=== PATIENT | male | born 1950 | race Caucasian/White ===

== ENCOUNTER → 2019-01-05 07:03 | Outpatient (CLI) | payer MEDICARE, SELFPAY ==
[2019-01-05 08:14] LABS: Add Manual Diff / Slide Review NO; Basophils Absolute Auto 0 /uL (0-100); Basophils Percent Auto 0.7 % (0-2); Eosinophils Absolute Auto 300 /uL (0-450); Eosinophils Percent Auto 5.5 % (2-4); Hematocrit 50.3 % (41-53); Hemoglobin 16.7 g/dL (13.5-17.5); Lymphocytes Absolute Auto 1900 /uL (1100-4500); Lymphocytes Percent Auto 32.5 % (25-40); Mean Corpuscular HGB Conc 33.3 % (30-36); Mean Corpuscular Volume 99.2 fL (80-100); Monocytes Absolute Auto 600 /uL (0-900); Monocytes Percent Auto 10.8 % (3-14); Neutrophils Absolute Auto 3000 /uL (1500-7000); Neutrophils Percent Auto 50.5 % (50-75); Platelet Count 125 X10^3/uL (150-400); Red Blood Cell Count 5.07 X10^6/uL (4.5-5.9); Red Cell Distribution Width 13.7 % (11.6-14.8); White Blood Cell Count 5.9 X10^3/uL (4.5-11.0)
[2019-01-05 08:38] LABS: Alanine Aminotransferase 43 IU/L (21-72); Albumin 4.2 g/dL (3.5-5.0); Albumin Globulin Ratio 1.2 (1.0-2.8); Alkaline Phosphatase 42 U/L (38-126); Aspartate Aminotransferase 36 IU/L (17-59); Bilirubin Total 0.7 mg/dL (0.2-1.3); Blood Urea Nitrogen 39 mg/dL (9-20); Calcium 9.2 mg/dL (8.4-10.2); Carbon Dioxide 29 mmol/L (22-32); Chloride 104 mmol/L (98-107); Cholesterol 156 mg/dL (140-199); Estimated Glomerular Filt Rate 46.3 mL/min (>60); Globulin 3.5 g/dL (1.7-4.1); Glucose 101 mg/dL (80-110); HDL Cholesterol 62 mg/dL (40-60); HEMOLYSIS 25 (0-50); LDL Cholesterol Calculated 77 mg/dL (<100); Sodium 142 mmol/L (137-145); Total Protein 7.7 g/dL (6.3-8.2); Triglycerides 83 mg/dL (35-150); Uric Acid 3.8 mg/dL (3.5-8.5)
[2019-01-05 08:39] LABS: Potassium 4.5 mmol/L (3.4-5.1)
[2019-01-05 11:19] LABS: Creatinine Urine Random 93.1 mg/dL
[2019-01-05 11:20] LABS: Microalbumi Creatinin Ratio Ur 99.8 ug/mg CR (<30); Microalbumin Urine Random 9.3 mg/dL (0-1.6)
== END ==
PROVIDERS: Visit Provider Internal Medicine
DX: M10.00 Idiopathic gout, unspecified site (principal); I10 Essential (primary) hypertension; E78.00 Pure hypercholesterolemia, unspecified
CPT/HCPCS: 36415; 80053; 80061; 82043; 82570; 84153; 84550; 85025

== ENCOUNTER 2019-04-10 06:40 | Day surgery (SDC) | payer MEDICARE, SELFPAY ==
[2019-04-10] VITALS (10 sets, daily range): BP systolic 106–154; BP diastolic 66–94; PULSE 52–57; RESP 11–20; TEMP 36.1–37; O2SAT 89–97; BMI 31.3
--- NOTE | 2019-04-10 | PATH_ITS ---
[facility] Accession Number: [id number] . 01 Material submitted: . PART A: stomach - GREATER CURVE PART B: stomach - BODY OF STOMACH PART C: esophagus, E-G Junction - GE JUNCTION . 02 Diagnosis: A. Stomach, Greater Curve, Biopsy: Features of fundic gland polyp. No evidence of Helicobacter organisms on H/E stain. Negative for intestinal metaplasia. Negative for dysplasia and malignancy. . B. Stomach, Body, Biopsies: Features of fundic gland polyp. No evidence of Helicobacter organisms on H/E stain. Negative for intestinal metaplasia. Negative for dysplasia and malignancy. . C. Gastroesophageal Junction, Biopsy: Squamocolumnar junctional mucosa with focal specialized intestinal metaplasia; please see comment. Negative for dysplasia or malignancy. BFI/04/11/2019 . 02 Comment: C. 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 . 02 Electronically signed: . Winston Zavala MD, PhD, Pathologist NPI- [id number] . 01 Gross description: . Part A: GREATER CURVE: Received in formalin are 2 fragment(s) of laguerre, soft tissue measuring 0.1 x 0.1 x 0.1 cm to 0.2 x 0.2 x 0.1 cm which is entirely submitted and submitted entirely in 1 cassette(s) Part B: BODY OF STOMACH: Received in formalin are 2 fragment(s) of laguerre, soft tissue measuring 0.1 x 0.1 x 0.1 cm to 0.2 x 0.1 x 0.1 cm which is entirely submitted and submitted entirely in 1 cassette(s) Part C: GE JUNCTION: Received in formalin are multiple fragment(s) of laguerre, soft tissue measuring 0.1 x 0.1 x 0.1 cm to 0.3 x 0.2 x 0.2 cm which is entirely submitted and submitted entirely in 1 cassette(s) /DMC /DMC . 02 Pathologist provided ICD-10: K31.7, K22.70 . 02 CPT . 178242, 672056, 450552 Performed at: 01 [facility] [address] [address], [place], [place] [id number] MD Del Rosales MD Phone: [phone] Performed at: [address] [facility] [id number] [place], [place] [id number] MD Earline Velasquez MD Phone: [phone]
[2019-04-10] MEDS: SODIUM CHLORIDE 0.9% 1,000 ML 200 ML IV (07:26)
--- NOTE | 2019-04-10 07:26 | PM.PREOP ---
Pre-operative Note Interval Note History & Physical reviewed/Exam performed by Physician: Yes Changes to H&P: No ASA Class (for procedural sedation): II
[2019-04-10] MEDS: LIDOCAINE 4% SOLN 50 ML 20 ML TOP (07:48)
[2019-04-10] MEDS: TETRACAINE/BENZOCAINE/BUTAMBEN (CETACAINE) BOTTLE 1 SPRAY TOP (07:49)
[2019-04-10] MEDS: fentaNYL 250 MCG/5 ML INJ IV (07:50)
[2019-04-10] MEDS: MIDAZOLAM 5 MG/5 ML VIAL IV (07:51)
--- NOTE | 2019-04-10 08:46 | SUR.PHASEI ---
Addendum entered by Addie Gomez R.N. 04/10/19 08:53: 0833 Color pale on arrival; Responded to repetitive, loud voice. Unable to stay awake, has difficulty following command to deep breath. Original Note: 0840 Sleeping, aroused to voice, turned to back/snoring Bilateral hearing aids in place. 0846 Trial of O2 at 2LNP ineffective, returned to 4LNP. Denies pain, very drowsy.
--- NOTE | 2019-04-10 08:52 | SUR.PHASEI ---
Denies light-headedness; HOB elevated, ice chiips given; swallowed without difficulty.
--- NOTE | 2019-04-10 09:05 | SUR.PHASEI ---
HOB up, tolerating ice chips well, no difficulty swallowing. Color pink/improved. Responsive to voice/appropriate/drowsy.
--- NOTE | 2019-04-10 14:45 | P.OP.ENDO_ITS ---
Operative Date/Time/Diagnoses Date of procedure: 04/10/19 Time of procedure: 08:30 Pre-op diagnosis: 1. History of Vladimir's Esophagus 2. Need for screening colonoscopy Post-op diagnosis: same Procedure & Clinicians Study performed: 1. EGD with biopsies 2. Flexible Sigmoidoscopy Same procedure as scheduled: No (aborted screening colonscopy due to patient intolerance) Indications: Patient with history of Staton'e esophagus and need for screening colonoscopy; he is in a high risk category due to family history. Surgeon: Cammy Perez Procedure Notes SCOAP/Timeout: 0746 Procedure in detail: After obtaining informed consent, the patient was brought to the GI suite and placed in the right lateral decubitus position on the examination table. After placement of appropriate monitors, the patient was given incremental doses of Versed and Fentanyl until an appropriate level of sedation was achieved. A time out was held per SCOAP protocol. A bite block was gently placed between the patient's teeth. The endoscope was lubricated and then passed into the patient's posterior oropharynx. The esophagus was cannulated under direct vision and the scope was passed to the second portion of the duodenum without difficulty. Pt was periodically apneic and required stimulation. The scope was then withdrawn with careful examination of all areas of the upper GI tract and mucosa. In the stomach, the instrument was retroflexed and the GE junction examined. Mild gastritis was noted around the pylorus and body. Several small polyps were noted along the body and greater curve- two of these were removed with cold forceps and sent for pathology. The scope was straightened and the procedure continued with examination of the remainder of the upper GI tract. Staton's changes and a small hiatal hernia were noted. A single tongue of salmon colored tissue extended about 2 cm; multiple biopsies from this and all four quadrants were obtained. Air was aspirated from the stomach and the endoscope gently removed f rom the esophagus. The patient was turned and bite block removed. A digital rectal examination was performed and did not reveal any masses or obstructing lesions but an enlarged prostate was noted. The colonoscope was gently passed into the patient's anus and the entire colon navigated to the level splenic flexure. Patient was quite intolerant despite incremental sedation increases; caution was applied given his apneic issues. He was yelling and writing despite numerous attempts, sedation changes, and checks to ensure no loops or scope issues were present. Given his pain and concern for perforation in this bad scenario, the scope was aborted. Prep was adequate. Diverticulosis was not throughout the sigmoid. The scope was straightened and air aspirated from the colon. The instrument was removed from the patient's body and the procedure was concluded. The patient was allowed to awaken from sedation without difficulty and taken to the post-anesthesia care unit in good condition. Scope withdrawal time: n/a Sedation minutes: 43 Findings: Staton's esophagus (single column tongue to 2cm), diverticulosis (severe, in sigmoid), gastritis and polyp (gastric polyps, numerous small noted (at least 4), biopsied from greater curve and body) Specimen(s): other (gastric polyp biopsies x2 (body & greater curve) as well as GEJ four quadrant biopsies for Staton's) Complications: other (patient with episodes of apnea during EGD, intolerant of colonoscopy and incremental sedation inadequate especially with caution given apnea) Impression: 1. Staton's changes 2. Gastritis 3. Gastric polyps- numerous 4. Hiatal hernia 5. Diverticulosis- severe Recommendations: Colonscopy in 1 year (will reschedule in office- patient noted after procedure that he thinks he has never had a completed colonoscopy with same issues as today), High fiber diet and EGD in 3 years Follow up: weeks Disposition: PACU
== END 2019-04-10 09:35 | disposition home or self-care (01) ==
PROVIDERS: PCP Internal Medicine; Visit Provider Surgery
PROC: 0DJ08ZZ Inspection of Upper Intestinal Tract, Via Natural or Artificial Opening Endoscopic (ICD-10-PCS; CPT 43235; 2019-04-10 07:45)
PROC: 0DJD8ZZ Inspection of Lower Intestinal Tract, Via Natural or Artificial Opening Endoscopic (ICD-10-PCS; CPT 45378; 2019-04-10 07:45)
DX: Z12.11 Encounter for screening for malignant neoplasm of colon (principal); K22.70 Barrett's esophagus without dysplasia; I10 Essential (primary) hypertension; E78.5 Hyperlipidemia, unspecified; K44.1 Diaphragmatic hernia with gangrene; K29.70 Gastritis, unspecified, without bleeding; K57.30 Diverticulosis of large intestine without perforation or abscess without bleeding; K31.7 Polyp of stomach and duodenum; N40.0 Benign prostatic hyperplasia without lower urinary tract symptoms
CPT/HCPCS: 43239; G0121; 88305; 99152; 99153; J2250; J3010

== ENCOUNTER → 2019-07-03 07:01 | Outpatient (CLI) | payer MEDICARE, SELFPAY ==
[2019-07-03 08:43] LABS: Add Manual Diff / Slide Review NO; Basophils Absolute Auto 0 /uL (0-100); Basophils Percent Auto 0.6 % (0-2); Eosinophils Absolute Auto 400 /uL (0-450); Eosinophils Percent Auto 6.1 % (2-4); Hemoglobin 16.1 g/dL (13.5-17.5); Lymphocytes Absolute Auto 2400 /uL (1100-4500); Lymphocytes Percent Auto 35.4 % (25-40); Mean Corpuscular HGB Conc 33.6 % (30-36); Mean Corpuscular Hemoglobin 33.2 PG (26-34); Mean Corpuscular Volume 98.8 fL (80-100); Monocytes Absolute Auto 700 /uL (0-900); Monocytes Percent Auto 10.4 % (3-14); Neutrophils Absolute Auto 3200 /uL (1500-7000); Neutrophils Percent Auto 47.5 % (50-75); Platelet Count 129 X10^3/uL (150-400); Red Blood Cell Count 4.86 X10^6/uL (4.5-5.9); Red Cell Distribution Width 14.4 % (11.6-14.8); White Blood Cell Count 6.8 X10^3/uL (4.5-11.0)
[2019-07-03 08:57] LABS: BUN Creatinine Ratio 23.8 (6-22); Blood Urea Nitrogen 38 mg/dL (9-20); Calcium 9.1 mg/dL (8.4-10.2); Carbon Dioxide 29 mmol/L (22-32); Chloride 106 mmol/L (98-107); Estimated Glomerular Filt Rate 42.9 mL/min (>60); Glucose 104 mg/dL (80-110); HEMOLYSIS < 15 (0-50); Sodium 141 mmol/L (137-145)
== END ==
PROVIDERS: PCP Internal Medicine; Visit Provider Internal Medicine
DX: K22.719 Barrett's esophagus with dysplasia, unspecified (principal); N18.3 Chronic kidney disease, stage 3 (moderate); D69.6 Thrombocytopenia, unspecified
CPT/HCPCS: 36415; 80048; 85025

== ENCOUNTER → 2019-09-28 10:03 | Outpatient (CLI) | payer MEDICARE, SELFPAY ==
--- NOTE | 2019-09-28 | DI.RAD.S_ITS ---
PROCEDURE: XR TOE LT MIN 2V INDICATIONS: left toe pain TECHNIQUE: 2 views of the great toe acquired. COMPARISON: None. FINDINGS: Bones: Severe degenerative changes of the 1st metatarsophalangeal joint are identified without associated hallux valgus. Additional areas of mild to moderate degenerative changes involving the foot are present. No suspicious osseous lesions are evident. No displaced fractures or dislocations. Soft tissues: No suspicious soft tissue densities. IMPRESSION: Severe degenerative changes of the 1st metatarsophalangeal joint. No fractures. Dictated by: Shay Chicas M.D. on 09/28/2019 at 9:25 Approved by: Shay Chicas M.D. on 09/28/2019 at 9:33
== END ==
PROVIDERS: PCP Internal Medicine; Visit Provider Physician Assistant
DX: M79.675 Pain in left toe(s) (principal)
CPT/HCPCS: 73660

== ENCOUNTER → 2020-01-01 16:17 | Outpatient (CLI) | payer MEDICARE, SELFPAY ==
[2020-01-01 17:14] LABS: Add Manual Diff / Slide Review NO; Basophils Absolute Auto 100 /uL (0-100); Basophils Percent Auto 0.7 % (0-2); Eosinophils Absolute Auto 400 /uL (0-450); Eosinophils Percent Auto 4.5 % (2-4); Hematocrit 48.3 % (41-53); Hemoglobin 16.4 g/dL (13.5-17.5); Lymphocytes Absolute Auto 2300 /uL (1100-4500); Lymphocytes Percent Auto 28.8 % (25-40); Mean Corpuscular Hemoglobin 33.6 PG (26-34); Mean Corpuscular Volume 98.8 fL (80-100); Monocytes Absolute Auto 900 /uL (0-900); Monocytes Percent Auto 11.3 % (3-14); Neutrophils Absolute Auto 4400 /uL (1500-7000); Neutrophils Percent Auto 54.7 % (50-75); Platelet Count 152 X10^3/uL (150-400); Red Blood Cell Count 4.89 X10^6/uL (4.5-5.9); Red Cell Distribution Width 13.4 % (11.6-14.8)
[2020-01-01 17:28] LABS: BUN Creatinine Ratio 22.7 (6-22); Blood Urea Nitrogen 34 mg/dL (9-20); Calcium 9.9 mg/dL (8.4-10.2); Carbon Dioxide 29 mmol/L (22-32); Chloride 103 mmol/L (98-107); Estimated Glomerular Filt Rate 46.1 mL/min (>60); Glucose 74 mg/dL (80-110); HEMOLYSIS < 15 (0-50); Sodium 140 mmol/L (137-145)
[2020-01-01 17:41] LABS: Potassium 5.6 mmol/L (3.4-5.1)
== END ==
PROVIDERS: PCP Internal Medicine; Referring Provider Internal Medicine; Visit Provider Internal Medicine
DX: I10 Essential (primary) hypertension (principal); N18.3 Chronic kidney disease, stage 3 (moderate); D69.6 Thrombocytopenia, unspecified
CPT/HCPCS: 36415; 80048; 85025

== ENCOUNTER → 2020-01-30 14:10 | Outpatient (CLI) | payer MEDICARE, SELFPAY ==
[2020-01-30 15:39] LABS: BUN Creatinine Ratio 22.4 (6-22); Blood Urea Nitrogen 38 mg/dL (9-20); Calcium 9.4 mg/dL (8.4-10.2); Carbon Dioxide 29 mmol/L (22-32); Chloride 107 mmol/L (98-107); Estimated Glomerular Filt Rate 39.9 mL/min (>60); Glucose 72 mg/dL (80-110); HEMOLYSIS < 15 (0-50); Potassium 4.9 mmol/L (3.4-5.1); Sodium 144 mmol/L (137-145)
== END ==
PROVIDERS: PCP Internal Medicine; Referring Provider Internal Medicine; Visit Provider Internal Medicine
DX: I10 Essential (primary) hypertension (principal)
CPT/HCPCS: 36415; 80048

== ENCOUNTER → 2020-06-14 11:16 | Outpatient (CLI) | payer MEDICARE, SELFPAY ==
[2020-06-15 21:00] LABS: COVID19 Sendout Not Detected (Not Detect)
== END ==
PROVIDERS: PCP Internal Medicine; Visit Provider Nurse Practitioner
DX: Z01.812 Encounter for preprocedural laboratory examination (principal)
CPT/HCPCS: 87635

== ENCOUNTER → 2020-08-01 13:08 | Outpatient (CLI) | payer MEDICARE, SELFPAY ==
[2020-08-01 14:12] LABS: Add Manual Diff / Slide Review NO; Basophils Absolute Auto 0 /uL (0-100); Basophils Percent Auto 0.7 % (0-2); Eosinophils Absolute Auto 300 /uL (0-450); Eosinophils Percent Auto 5.5 % (2-4); Hematocrit 53.2 % (41-53); Hemoglobin 17.7 g/dL (13.5-17.5); Lymphocytes Absolute Auto 1900 /uL (1100-4500); Lymphocytes Percent Auto 31.1 % (25-40); Mean Corpuscular HGB Conc 33.3 % (30-36); Mean Corpuscular Hemoglobin 33.2 PG (26-34); Mean Corpuscular Volume 99.9 fL (80-100); Monocytes Absolute Auto 500 /uL (0-900); Monocytes Percent Auto 8.6 % (3-14); Neutrophils Absolute Auto 3300 /uL (1500-7000); Neutrophils Percent Auto 54.1 % (50-75); Platelet Count 134 X10^3/uL (150-400); Red Blood Cell Count 5.33 X10^6/uL (4.5-5.9); Red Cell Distribution Width 14.6 % (11.6-14.8); White Blood Cell Count 6.2 X10^3/uL (4.5-11.0)
[2020-08-01 14:29] LABS: Alanine Aminotransferase 33 IU/L (<50); Albumin 4.2 g/dL (3.5-5.0); Albumin Globulin Ratio 1.3 (1.0-2.8); Alkaline Phosphatase 60 U/L (38-126); Aspartate Aminotransferase 31 IU/L (17-59); BUN Creatinine Ratio 23.7 (6-22); Bilirubin Total 0.9 mg/dL (0.2-1.3); Blood Urea Nitrogen 40 mg/dL (9-20); Calcium 9.7 mg/dL (8.4-10.2); Carbon Dioxide 30 mmol/L (22-32); Chloride 105 mmol/L (98-107); Cholesterol 182 mg/dL (140-199); Estimated Glomerular Filt Rate 40.2 mL/min (>60); Globulin 3.2 g/dL (1.7-4.1); Glucose 114 mg/dL (80-110); HDL Cholesterol 74 mg/dL (40-60); HEMOLYSIS < 15 (0-50); LDL Cholesterol Calculated 76 mg/dL (<100); Sodium 141 mmol/L (137-145); Total Protein 7.4 g/dL (6.3-8.2); Triglycerides 162 mg/dL (35-150)
[2020-08-01 14:30] LABS: Potassium 5.6 mmol/L (3.4-5.1)
== END ==
PROVIDERS: PCP Internal Medicine; Referring Provider Internal Medicine; Visit Provider Internal Medicine
DX: E78.00 Pure hypercholesterolemia, unspecified (principal); D69.6 Thrombocytopenia, unspecified
CPT/HCPCS: 36415; 80053; 80061; 85025

== ENCOUNTER → 2020-08-15 10:23 | Outpatient (CLI) | payer MEDICARE, SELFPAY ==
[2020-08-15 11:56] LABS: BUN Creatinine Ratio 19.8 (6-22); Blood Urea Nitrogen 35 mg/dL (9-20); Calcium 9.1 mg/dL (8.4-10.2); Carbon Dioxide 29 mmol/L (22-32); Chloride 105 mmol/L (98-107); Estimated Glomerular Filt Rate 38.1 mL/min (>60); Glucose 99 mg/dL (80-110); HEMOLYSIS < 15 (0-50); Potassium 4.2 mmol/L (3.4-5.1); Sodium 142 mmol/L (137-145)
[2020-08-15 12:44] LABS: TSH w/ Reflex to FT4 1.75 uIU/mL (0.47-4.68)
== END ==
PROVIDERS: PCP Internal Medicine; Referring Provider Internal Medicine; Visit Provider Internal Medicine
DX: I48.91 Unspecified atrial fibrillation (principal)
CPT/HCPCS: 36415; 80048; 83735; 84443

== ENCOUNTER → 2020-08-28 07:53 | Outpatient (CLI) | payer MEDICARE, SELFPAY ==
--- NOTE | 2020-08-28 | DI.ECHO.S_ITS ---
[facility] +---------+ : : [address] : : : : [id number] : : : : Phone: [phone]---------+ Echocardiogram Report + + :Name: SAMANTA MENDEZ Study Date: 08/28/2020 Height: 67 in : :[facility] Weight: 206 lb : : Gender: Male BSA: 2.0 m2 : :: 1950 Age: 69 yrs BP: 151/110 mmHg: :Reason For Study: ATRIAL FIBRILLATION : :Ordering Physician: ROBERTO, : :ROEL Performed By: Charmaine Clancy : :Referring: ROEL MEJIA : + + Interpretation Summary The ejection fraction is estimated to be 40-45%. There is mild global hypokinesis of the left ventricle. Inferolateral hypokinesis There is mild to moderate mitral regurgitation. There is mild aortic regurgitation. Procedure: A two-dimensional transthoracic echocardiogram with color flow and Doppler was performed. The study quality was technically adequate. There is no prior echocardiogram noted for this patient. The patient was in atrial fibrillation with heart rates between 95-114 bpm during the exam. Left Ventricle: The left ventricle is normal in size and wall thickness. The ejection fraction is estimated to be 40-45%. There is mild global hypokinesis of the left ventricle. Inferolateral hypokinesis. Diastolic function could not be accurately assessed due to atrial fibrillation. Right Ventricle: The right ventricle is normal in size and function. Atria: Both atria are normal in size. There is no Doppler evidence for an interatrial shunt. Mitral Valve: The mitral valve leaflets appear mildly thickened, but open well. There is mild to moderate mitral regurgitation. Aortic Valve: The aortic valve is trileaflet. The aortic valve opens well. There is no aortic valve stenosis. There is mild aortic regurgitation. Tricuspid Valve: The tricuspid valve is not well visualized, but is grossly normal. Pulmonary artery pressures cannot be estimated because of the lack of a measurable TR jet velocity but the IVC suggests a CVP of around 3 mmHg. There is trace tricuspid regurgitation. Pulmonic Valve: The pulmonic valve is not well visualized. There is no pulmonic valvular regurgitation. Great Vessels: The aortic root is normal size. The ascending aorta could not be visualized. The IVC is of normal diameter and collapses greater than 50% with a sniff. This suggests a low right atrial pressure of 3 mm Hg. Pericardium/ Pleura There is no pericardial effusion. There is an anterior echo-free space consistent with a fat pad. There is no pleural effusion. MMode/2D Measurements & Calculations LVIDd: 4.4 cm LVOT diam: 2.0 cm LVIDs: 2.9 cm Ao root diam: 3.0 cm FS: 34.6 % Ao Arch Diam (Prox Trans): 3.7 cm EPSS: 0.94 cm IVSd: 0.87 cm LVPWd: 1.1 cm LV johnson. diameter/BSA (cm/m^2): 2.1 LV sys. diameter/BSA (cm/m^2): 1.4 LA A2 area: 19.6 cm2 RA long axis: 5.3 cm LA A4 area: 19.5 cm2 RA area: 16.8 cm2 LA length (vol): 5.7 cm RA vol: 45.4 ml LA vol: 57.5 ml RA : 22.2 ml/m2 LA vol index: 28.1 ml/m2 IVC diam: 1.7 cm RVD1 (basal): 3.5 cm TAPSE: 1.7 cm Doppler Measurements & Calculations Ao V2 max: 106.4 cm/sec LVOT Max Néstor: 70.8 cm/sec Ao V2 mean: 71.6 cm/sec LV V1 max P.0 mmHg Ao max P.5 mmHg LV V1 VTI: 12.9 cm Ao mean P.4 mmHg ALEJANDRO(I,D): 2.2 cm2 Ao V2 VTI: 19.0 cm ALEJANDRO(V,D): 2.2 cm2 sev ratio: 0.68 ALEJANDRO indexed to BSA (cm^2/m^2): 1.1 MV E max néstor: 110.0 cm/sec PA V2 max: 47.5 cm/sec MV A max néstor: 1.4 cm/sec PA V2 mean: 31.9 cm/sec MV E/A: 80.8 PA mean P.46 mmHg Med Peak E' Néstor: 9.0 cm/sec PA pr(Accel): 44.3 mmHg E/E' med: 12.3 Lat Peak E' Néstor: 8.5 cm/sec E/E' lat: 13.0 E/e' average: 12.6 MV dec time: 0.16 sec SV(LVOT): 42.3 ml Reading Physician:01:30 PM
== END ==
PROVIDERS: PCP Internal Medicine; Referring Provider Internal Medicine; Visit Provider Internal Medicine
DX: I08.0 Rheumatic disorders of both mitral and aortic valves (principal); I48.91 Unspecified atrial fibrillation
CPT/HCPCS: 93306

== ENCOUNTER → 2020-10-16 09:04 | Outpatient (CLI) | payer MEDICARE, SELFPAY ==
--- NOTE | 2020-10-16 | DI.US.S_ITS ---
PROCEDURE: US CAROTID DOPPLER BI INDICATIONS: Unspecified Afib; Hypertension TECHNIQUE: Color and pulse Doppler interrogation was performed of both carotid systems, with image documentation and velocity measurements. COMPARISON: [facility], US, US ABD AORTA ANEURYSM SCREEN, 10/16/2020, 9:17. FINDINGS: Stenosis calculations are based on SRU (Society of Radiologists in Ultrasound) criteria. The flow velocities and the arterial waveforms are normal within both carotid arterial systems. Atherosclerotic plaque is seen on both sides. The estimated degree of internal carotid artery stenosis is less than 50%. Antegrade flow is confirmed within both vertebral arteries. IMPRESSION: No hemodynamically significant stenosis is seen. Atherosclerotic plaque is noted bilaterally. Dictated by: Jarett Sagastume M.D. on 10/16/2020 at 10:44 Approved by: Jarett Sagastume M.D. on 10/16/2020 at 10:46
--- NOTE | 2020-10-16 | DI.US.S_ITS ---
PROCEDURE: US ABD AORTA ANEURYSM SCREEN INDICATIONS: Unspecified Afib; Hypertension TECHNIQUE: Real time scanning was performed of the aorta and iliac arteries, with image documentation. COMPARISON: [facility], US, US CAROTID DOPPLER , 10/16/2020, 9:32. FINDINGS: Aorta: Proximal aorta is not well seen. There is a mid abdominal aortic aneurysm seen that measures up to 4.2 cm AP. This fusiform aneurysm gradually tapers distally and measures approximately 11 cm craniocaudal. Distal aortic diameter is 3.1 cm. Iliac arteries: Not well seen. Incidental note is made of multiple right kidney cysts, with the largest seen inferiorly measuring up to 7 mm. Minimal dependent debris can be seen within the cysts. The study is limited by bowel gas. IMPRESSION: Mid abdominal aortic aneurysm measuring up to 4.2 cm AP. Multiple right kidney cysts are seen, including a 7 cm cyst with layering debris. Dictated by: Jarett Sagastume M.D. on 10/16/2020 at 10:42 Approved by: Jarett Sagastume M.D. on 10/16/2020 at 10:44
== END ==
PROVIDERS: PCP Internal Medicine; Referring Provider Internal Medicine; Visit Provider Internal Medicine
DX: I48.91 Unspecified atrial fibrillation (principal); I10 Essential (primary) hypertension; I71.4 Abdominal aortic aneurysm, without rupture; N28.1 Cyst of kidney, acquired
CPT/HCPCS: 76706; 93880

== ENCOUNTER → 2020-10-28 08:20 | Outpatient (CLI) | payer MEDICARE, SELFPAY ==
[2020-10-28 12:35] LABS: Add Manual Diff / Slide Review NO; Basophils Absolute Auto 0 /uL (0-100); Basophils Percent Auto 0.8 % (0-2); Eosinophils Absolute Auto 200 /uL (0-450); Eosinophils Percent Auto 4.3 % (2-4); Hematocrit 50.1 % (41-53); Hemoglobin 16.6 g/dL (13.5-17.5); Lymphocytes Absolute Auto 2000 /uL (1100-4500); Lymphocytes Percent Auto 36.2 % (25-40); Mean Corpuscular HGB Conc 33.2 % (30-36); Mean Corpuscular Hemoglobin 33.1 PG (26-34); Mean Corpuscular Volume 99.8 fL (80-100); Monocytes Absolute Auto 700 /uL (0-900); Monocytes Percent Auto 12.2 % (3-14); Neutrophils Absolute Auto 2600 /uL (1500-7000); Neutrophils Percent Auto 46.5 % (50-75); Platelet Count 126 X10^3/uL (150-400); Red Blood Cell Count 5.02 X10^6/uL (4.5-5.9); Red Cell Distribution Width 14.1 % (11.6-14.8); White Blood Cell Count 5.5 X10^3/uL (4.5-11.0)
[2020-10-28 13:10] LABS: BUN Creatinine Ratio 22.7 (6-22); Blood Urea Nitrogen 32 mg/dL (9-20); Carbon Dioxide 31 mmol/L (22-32); Chloride 106 mmol/L (98-107); Estimated Glomerular Filt Rate 49.5 mL/min (>60); Glucose 84 mg/dL (80-110); HEMOLYSIS < 15 (0-50); Potassium 4.3 mmol/L (3.4-5.1); Sodium 141 mmol/L (137-145)
== END ==
PROVIDERS: PCP Internal Medicine; Referring Provider Internal Medicine; Visit Provider Internal Medicine
DX: I48.91 Unspecified atrial fibrillation (principal); I10 Essential (primary) hypertension; N18.30 Chronic kidney disease, stage 3 unspecified
CPT/HCPCS: 36415; 80048; 85025

== ENCOUNTER → 2021-02-01 10:31 | Outpatient (CLI) | payer MEDICARE, SELFPAY ==
[2021-02-01 11:00] LABS: INR 3.7 (0.9-1.3); Prothrombin Time 42.7 SECONDS (10.1-12.7)
== END ==
PROVIDERS: PCP Internal Medicine; Referring Provider Physician Assistant; Visit Provider Physician Assistant
DX: I48.91 Unspecified atrial fibrillation (principal)
CPT/HCPCS: 36415; 85610

== ENCOUNTER → 2021-03-11 07:32 | Outpatient (CLI) | payer MEDICARE, SELFPAY ==
[2021-03-11 08:32] LABS: Add Manual Diff / Slide Review NO; Basophils Absolute Auto 0 /uL (0-100); Basophils Percent Auto 0.6 % (0-2); Eosinophils Absolute Auto 400 /uL (0-450); Eosinophils Percent Auto 6.7 % (2-4); Hematocrit 47.2 % (41-53); Hemoglobin 15.8 g/dL (13.5-17.5); Lymphocytes Absolute Auto 1900 /uL (1100-4500); Lymphocytes Percent Auto 32.5 % (25-40); Mean Corpuscular HGB Conc 33.4 % (30-36); Mean Corpuscular Hemoglobin 33.2 PG (26-34); Mean Corpuscular Volume 99.5 fL (80-100); Monocytes Absolute Auto 500 /uL (0-900); Monocytes Percent Auto 8.5 % (3-14); Neutrophils Absolute Auto 3000 /uL (1500-7000); Neutrophils Percent Auto 51.7 % (50-75); Platelet Count 120 X10^3/uL (150-400); Red Blood Cell Count 4.75 X10^6/uL (4.5-5.9); Red Cell Distribution Width 13.7 % (11.6-14.8); White Blood Cell Count 5.8 X10^3/uL (4.5-11.0)
[2021-03-11 08:44] LABS: Blood Urea Nitrogen 36 mg/dL (9-20); Carbon Dioxide 30 mmol/L (22-32); Chloride 105 mmol/L (98-107); Cholesterol 166 mg/dL (140-199); Glucose 111 mg/dL (80-110); HDL Cholesterol 79 mg/dL (40-60); HEMOLYSIS < 15 (0-50); LDL Cholesterol Calculated 77 mg/dL (<100); Potassium 5.2 mmol/L (3.4-5.1); Sodium 142 mmol/L (137-145); Triglycerides 52 mg/dL (35-150)
== END ==
PROVIDERS: PCP Internal Medicine; Referring Provider Internal Medicine Cardiovascular Disease; Visit Provider Internal Medicine Cardiovascular Disease
DX: I10 Essential (primary) hypertension (principal); E78.5 Hyperlipidemia, unspecified
CPT/HCPCS: 36415; 80048; 80061; 85025

== ENCOUNTER → 2021-03-20 13:36 | Outpatient (CLI) | payer MEDICARE, SELFPAY ==
--- NOTE | 2021-03-20 | DI.ECHO.S_ITS ---
[facility]---------+ [facility] +---------+ : : [address] : [address] [place] : : : : [id number] : : : : Phone: [phone]---------+ Echocardiogram Report + + :Name: SAMANTA MENDEZ Study Date: 03/20/2021 Height: 67 in : :[facility] ReadingLocation: Weight: 204 lb : : Gender: Male BSA: 2.0 m2 : :: 1950 Age: 70 yrs BP: 138/74 mmHg: :Reason For Study: CARDIOMYOPATHY : :Ordering Physician: ISMAEL, : :LISA Performed By: Charmaine Clancy : :Referring: LISA HARVEY : + + Interpretation Summary 1) Normal left ventricular thickness, size, wall motion, and systolic function (EF 55-60%). 2) Normal right ventricular size and function. 3) There is mild aortic regurgitation. 4) Compared to the Echo done 08/28/2020, LVEF has improved from mildly- moderately reduced to normal on this study. Procedure: A two-dimensional transthoracic echocardiogram with color flow and Doppler was performed. The study quality was technically adequate. Comparison is made with the echocardiogram of 08/28/2020. The patient was in sinus bradycardia with heart rates between 54-72 bpm during the exam. Left Ventricle: The left ventricle is normal in size and wall thickness. The ejection fraction is estimated to be 55-60%. Left ventricular systolic function appears normal without focal wall motion abnormalities. Diastolic parameters suggest probable normal left ventricular diastolic function and normal filling pressures. Right Ventricle: The right ventricle is normal in size and function. Atria: The left atrial size is normal. Right atrial size is normal. There is no Doppler evidence for an interatrial shunt. Mitral Valve: The mitral valve leaflets appear mildly thickened, but open well. There is mild mitral regurgitation. Aortic Valve: The aortic valve is trileaflet. The aortic valve opens well. There is no aortic valve stenosis. There is mild aortic regurgitation. Tricuspid Valve: The tricuspid valve is normal in structure and function. There is mild tricuspid regurgitation. Pulmonary artery pressures cannot be estimated because of the lack of a measurable TR jet velocity but the IVC suggests a CVP of around 3 mmHg. Pulmonic Valve: The pulmonic valve leaflets are thin and pliable; valve motion is normal. There is trace pulmonic regurgitation. Great Vessels: The aortic root is normal size. The ascending aorta is at the upper limits of normal in size. The IVC is of normal diameter and collapses greater than 50% with a sniff. This suggests a low right atrial pressure of 3 mm Hg. Pericardium/ Pleura There is no pericardial effusion. There is no pleural effusion. MMode/2D Measurements & Calculations LVIDd: 4.9 cm LVOT diam: 2.0 cm LVIDs: 3.3 cm Ao root diam: 3.1 cm FS: 32.5 % asc Aorta Diam: 3.5 cm EPSS: 0.73 cm Ao Arch Diam (Prox Trans): 3.5 cm IVSd: 1.3 cm LVPWd: 0.93 cm LV johnson. diameter/BSA (cm/m^2): 2.4 LV sys. diameter/BSA (cm/m^2): 1.6 LA A2 area: 18.1 cm2 RA long axis: 5.0 cm LA A4 area: 16.4 cm2 RA area: 15.7 cm2 LA length (vol): 5.1 cm RA vol: 41.9 ml LA vol: 49.6 ml RA : 20.5 ml/m2 LA vol index: 24.3 ml/m2 IVC diam: 1.7 cm RVD1 (basal): 3.2 cm TAPSE: 2.0 cm Doppler Measurements & Calculations Ao V2 max: 163.8 cm/sec LVOT Max Néstor: 86.1 cm/sec Ao V2 mean: 106.3 cm/sec LV V1 max P.0 mmHg Ao max P.7 mmHg LV V1 VTI: 21.1 cm Ao mean P.4 mmHg ALEJANDRO(I,D): 1.9 cm2 Ao V2 VTI: 36.0 cm ALEJANDRO(V,D): 1.7 cm2 sev ratio: 0.59 ALEJANDRO indexed to BSA (cm^2/m^2): 0.94 MV E max néstor: 70.0 cm/sec PA V2 max: 97.8 cm/sec MV A max néstor: 100.0 cm/sec PA V2 mean: 63.5 cm/sec MV E/A: 0.70 PA mean P.9 mmHg Med Peak E' Néstor: 6.9 cm/sec PA pr(Accel): 53.3 mmHg E/E' med: 10.2 Lat Peak E' Néstor: 7.5 cm/sec E/E' lat: 9.4 E/e' average: 9.8 MV dec time: 0.27 sec SV(LVOT): 69.2 ml Reading Physician:03:56 PM
== END ==
PROVIDERS: PCP Internal Medicine; Referring Provider Internal Medicine; Visit Provider Internal Medicine Cardiovascular Disease
DX: I08.3 Combined rheumatic disorders of mitral, aortic and tricuspid valves (principal); I42.9 Cardiomyopathy, unspecified
CPT/HCPCS: 93306

== ENCOUNTER → 2021-04-12 10:25 | Outpatient (CLI) | payer MEDICARE, SELFPAY ==
[2021-04-12 11:56] LABS: COVID19 -Nasal RAPID Negative (Negative)
== END ==
PROVIDERS: PCP Internal Medicine; Visit Provider Physician Assistant
DX: Z01.812 Encounter for preprocedural laboratory examination (principal); Z20.822 Contact with and (suspected) exposure to COVID-19
CPT/HCPCS: 87635; C9803

== ENCOUNTER → 2021-04-14 10:37 | Outpatient (CLI) | payer MEDICARE, SELFPAY ==
--- NOTE | 2021-04-14 11:58 | PM.TREADMILL ---
Cardiac Stress Test Report Referral & Results Date Patient Seen: 04/14/21 Time Patient Seen: 11:58 Requesting provider: Malick Harvey Indication: cardiomyopathy Rest ECG: Sinus bradycardia Procedure Note: Standard Jomar protocol, 6:30, 7.3 METS Good exercise capacity, DARIN 0% Normal hemodynamic response to exercise No chest pain or anginal symptoms No significant ST changes at peak exercise No ectopy Impression: Normal exercise stress test Please note: Actual ECG tracings can be found in the PACS system.
--- NOTE | 2021-04-16 04:48 | DI.NM.S_ITS ---
DATE OF SERVICE: PROCEDURE: Exercise perfusion study. DATE OF STUDY: 04/14/2021 INDICATIONS: Paroxysmal atrial fibrillation, hypertension, hyperlipidemia, history of cardiomyopathy. RADIOPHARMACEUTICAL: 27.7 millicurie technetium-99m Myoview IV was injected at stress and 25.3 millicurie technetium-99m Myoview IV was injected at rest. CARDIAC STRESS: The patient underwent exercise perfusion study under the supervision of an attending staff. The patient walked on the Jomar protocol for 6 minutes and 30 seconds, achieved 89 percent of target heart rate, normal blood pressure response. Baseline blood pressure 138/80. Peak blood pressure 160/80. The patient achieved 7 METs of workload and functional aerobic impairment 0 percent. No anginal symptoms. The patient felt dyspnea. Baseline EKG revealed sinus rhythm with mild sinus bradycardia. During stress, no convincing ischemic EKG changes or significant arrhythmias seen. RAW DATA: There is increased subdiaphragmatic activity. Patient's weight is 204 pounds. GATED STUDY: Resting LV ejection fraction 72% and stress LV ejection fraction is 74 percent without any obvious wall motion abnormalities. Resting end- diastolic volume 105 mL. TID ratio 0.60 which is within normal limits. Lung/heart ratio 0.35 which is within normal limits. MYOCARDIAL PERFUSION SCAN: Stress supine and resting supine images revealed large size, moderate to severely decreased perfusion of inferior wall extending into the inferior apex, as well as inferior septum which got completely resolved during prone images suggestive of tissue attenuation artifact. No convincing ischemia or infarction pattern seen during prone images. CONCLUSION: I will call this study a normal myocardial perfusion study with evidence of diaphragmatic tissue attenuation artifact which got resolved during prone images. The patient walked on Jomar protocol for 6 minutes and 30 seconds with normal hemodynamic response. No convincing ischemic EKG changes. Functional aerobic impairment 0%. Left ventricular function is preserved. Overall this is a low-risk myocardial perfusion study. Jerzy Jones - IESHA/bernard/garima doc#: [id number]/job#: [id number] dd: 04/15/2021 17:35:00 dt: 04/16/2021 04:36:00 DICTATING MD/COPIES TO: Huey Braun MD COPIES MNE: CARLOS;
== END ==
PROVIDERS: PCP Internal Medicine; Referring Provider Internal Medicine; Visit Provider Internal Medicine Cardiovascular Disease
DX: I42.9 Cardiomyopathy, unspecified (principal); I48.0 Paroxysmal atrial fibrillation; E78.5 Hyperlipidemia, unspecified; I10 Essential (primary) hypertension
CPT/HCPCS: 78452; 93017; A9502

== ENCOUNTER → 2021-06-10 07:29 | Outpatient (CLI) | payer MEDICARE, SELFPAY ==
[2021-06-10 08:15] LABS: Add Manual Diff / Slide Review NO; Basophils Absolute Auto 0 /uL (0-100); Basophils Percent Auto 0.5 % (0-2); Eosinophils Absolute Auto 300 /uL (0-450); Eosinophils Percent Auto 5.3 % (2-4); Hematocrit 50.9 % (41-53); Hemoglobin 16.6 g/dL (13.5-17.5); Lymphocytes Absolute Auto 2100 /uL (1100-4500); Lymphocytes Percent Auto 35.4 % (25-40); Mean Corpuscular HGB Conc 32.6 % (30-36); Mean Corpuscular Hemoglobin 32.1 PG (26-34); Mean Corpuscular Volume 98.6 fL (80-100); Monocytes Absolute Auto 600 /uL (0-900); Monocytes Percent Auto 10.3 % (3-14); Neutrophils Absolute Auto 2900 /uL (1500-7000); Neutrophils Percent Auto 48.5 % (50-75); Platelet Count 116 X10^3/uL (150-400); Red Blood Cell Count 5.16 X10^6/uL (4.5-5.9); Red Cell Distribution Width 14.1 % (11.6-14.8); White Blood Cell Count 5.9 X10^3/uL (4.5-11.0)
[2021-06-10 08:50] LABS: Blood Urea Nitrogen 37 mg/dL (9-20); Calcium 8.8 mg/dL (8.4-10.2); Carbon Dioxide 28 mmol/L (22-32); Chloride 107 mmol/L (98-107); Cholesterol 166 mg/dL (140-199); Estimated Glomerular Filt Rate 40.4 mL/min (>60); Glucose 97 mg/dL (80-110); HDL Cholesterol 73 mg/dL (40-60); HEMOLYSIS < 15 (0-50); LDL Cholesterol Calculated 80 mg/dL (<100); Potassium 4.6 mmol/L (3.4-5.1); Sodium 142 mmol/L (137-145); Triglycerides 63 mg/dL (35-150)
== END ==
PROVIDERS: PCP Internal Medicine; Referring Provider Internal Medicine Cardiovascular Disease; Visit Provider Internal Medicine Cardiovascular Disease
DX: I48.19 Other persistent atrial fibrillation (principal); E78.5 Hyperlipidemia, unspecified
CPT/HCPCS: 36415; 80048; 80061; 85025

== ENCOUNTER → 2021-06-22 10:11 | Outpatient (CLI) | payer MEDICARE, SELFPAY ==
--- NOTE | 2021-06-22 10:13 | DI.MRI.S_ITS ---
PROCEDURE: MR LUMBAR SPINE WO CON INDICATIONS: Spinal stenosis, lumbar region TECHNIQUE: Noncontrast sagittal T1 spin echo and T2 fast echo, sagittal STIR, axial T1 and T2 fast spin echo through the lumbar spine. In cases with scoliosis, additional coronal T2 fast spin echo may be performed. COMPARISON: [facility], CR, XR LUMBAR SPINE WITH OLBIQUES PLUS FLEXION EXTENSION, 06/16/2021, 15:17. FINDINGS: Image quality: Excellent. Alignment and Curvature: 5 lumbar type vertebral bodies are present by plain film. There is mild grade 1 retrolisthesis of L2 on L3 and L5 on S1. Bone Marrow: Marrow is of normal overall signal. No acute vertebral body compression fractures. Moderate reactive signal within the endplates adjacent to the L5-S1 intervertebral disc. Spinal Cord: Conus medullaris terminates at the L1-L2 disc space level. Visualized cord demonstrates normal signal and size. Paraspinous Soft Tissues: No paravertebral masses. 40 mm diameter infrarenal abdominal aortic aneurysm. Moderate to severe left renal atrophy. Multiple right renal cysts. T12-L1: Normal appearance. L1-L2: Normal appearance. L2-L3: Mild disc height loss and desiccation. Mild diffuse disc bulge. Mild facet and ligamentum flavum hypertrophy. Mild epidural lipomatosis. Mild canal stenosis. Mild bilateral foraminal stenosis. L3-L4: Moderate disc height loss and desiccation. Mild diffuse disc bulge. Mild facet and ligamentum flavum hypertrophy. Mild canal stenosis. Mild bilateral foraminal stenosis. L4-L5: Moderate disc desiccation. Mild disc height loss and diffuse disc bulge. Mild facet and ligamentum flavum hypertrophy. Mild epidural lipomatosis. Mild canal stenosis. Mild bilateral foraminal stenosis. L5-S1: Moderate disc height loss and desiccation. Mild diffuse disc bulge. Mild bilateral facet and ligamentum flavum hypertrophy. Mild canal stenosis. Moderate bilateral foraminal stenosis. No significant change. IMPRESSION: 1. Multilevel degenerative disc and facet disease, as well as ligamentum flavum hypertrophy and epidural lipomatosis. 2. Mild multilevel canal stenoses. 3. Mild multilevel foraminal stenoses. 4. Abdominal aortic aneurysm. Dictated by: Fadi Stubbs M.D. on 06/23/2021 at 8:52 Approved by: Fadi Stubbs M.D. on 06/23/2021 at 8:56
== END ==
PROVIDERS: PCP Internal Medicine; Referring Provider Physical Medicine & Rehabilitation Pain Medicine; Visit Provider Physical Medicine & Rehabilitation Pain Medicine
DX: M48.062 Spinal stenosis, lumbar region with neurogenic claudication (principal); M48.07 Spinal stenosis, lumbosacral region; M51.36 Other intervertebral disc degeneration, lumbar region; M51.37 Other intervertebral disc degeneration, lumbosacral region; I71.4 Abdominal aortic aneurysm, without rupture; E88.2 Lipomatosis, not elsewhere classified
CPT/HCPCS: 72148

== ENCOUNTER → 2022-03-30 10:48 | Outpatient (CLI) | payer MEDICARE, SELFPAY ==
--- NOTE | 2022-03-30 10:51 | DI.US.S_ITS ---
PROCEDURE: US CAROTID DOPPLER BI INDICATIONS: carotid stenosis TECHNIQUE: Color and pulse Doppler interrogation was performed of both carotid systems, with image documentation and velocity measurements. COMPARISON: [facility], , RETRO PERITONEAL LIMITED, 03/30/2022, 11:20. [facility], , US CAROTID DOPPLER BI, 10/16/2020, 9:32. FINDINGS: Stenosis calculations are based on SRU (Society of Radiologists in Ultrasound) criteria. The flow velocities and the arterial waveforms are normal within both carotid arterial systems. Minimal atherosclerotic plaque is seen on both sides. The estimated degree of internal carotid artery stenosis is less than 50%. Antegrade flow is confirmed within both vertebral arteries. IMPRESSION: No hemodynamically significant stenosis is seen. Similar to prior. Dictated by: Jarett Sagastume M.D. on 03/30/2022 at 12:11 Approved by: Jarett Sagastume M.D. on 03/30/2022 at 12:12
--- NOTE | 2022-03-30 10:51 | DI.US.S_ITS ---
PROCEDURE: US RETRO PERITONEAL LIMITED INDICATIONS: AAA TECHNIQUE: Real time scanning was performed of the aorta and iliac arteries, with image documentation. COMPARISON: [facility], US, US ABD AORTA ANEURYSM SCREEN, 10/16/2020, 9:17. [facility], US, US CAROTID DOPPLER BI, 03/30/2022, 11:30. [facility]ound, US, US AAA SCREENING (MEDICARE), 08/27/2021, 11:21. FINDINGS: Aorta: The proximal aorta is not seen. The mid aorta measures 3.6 cm AP and 3.9 cm transversely, compared to 4.2 cm AP on the prior. The distal aorta measures up to 3.5 cm AP, compared to 3.1 cm on the prior. Iliac arteries: Right common iliac artery measures 1.3 cm. Left common iliac artery is not well seen. This study is limited by body habitus. Study is further limited by bowel gas. IMPRESSION: Mild aneurysmal dilatation is seen of the mid and distal aorta. The proximal aorta is not well seen. Dictated by: Jarett Sagastume M.D. on 03/30/2022 at 12:12 Approved by: Jarett Sagastume M.D. on 03/30/2022 at 12:16
== END ==
PROVIDERS: PCP Internal Medicine; Referring Provider Internal Medicine; Visit Provider Internal Medicine
DX: I65.29 Occlusion and stenosis of unspecified carotid artery (principal); I71.4 Abdominal aortic aneurysm, without rupture; I73.9 Peripheral vascular disease, unspecified
CPT/HCPCS: 76775; 93880

== ENCOUNTER → 2022-03-31 08:16 | Outpatient (CLI) | payer MEDICARE, SELFPAY ==
[2022-03-31 08:50] LABS: Add Manual Diff / Slide Review NO; Basophils Absolute Auto 100 /uL (0-100); Basophils Percent Auto 1.1 % (0-2); Eosinophils Absolute Auto 400 /uL (0-450); Eosinophils Percent Auto 6.2 % (2-4); Hematocrit 48.3 % (41-53); Hemoglobin 16.4 g/dL (13.5-17.5); Lymphocytes Absolute Auto 1600 /uL (1100-4500); Lymphocytes Percent Auto 28.5 % (25-40); Mean Corpuscular Hemoglobin 32.8 PG (26-34); Mean Corpuscular Volume 96.4 fL (80-100); Monocytes Absolute Auto 600 /uL (0-900); Monocytes Percent Auto 9.7 % (3-14); Neutrophils Absolute Auto 3100 /uL (1500-7000); Neutrophils Percent Auto 54.5 % (50-75); Platelet Count 106 X10^3/uL (150-400); Red Blood Cell Count 5.01 X10^6/uL (4.5-5.9); Red Cell Distribution Width 14.5 % (11.6-14.8); White Blood Cell Count 5.7 X10^3/uL (4.5-11.0)
[2022-03-31 10:36] LABS: Alanine Aminotransferase 44 IU/L (<50); Albumin 3.9 g/dL (3.5-5.0); Albumin Globulin Ratio 1.1 (1.0-2.8); Alkaline Phosphatase 51 U/L (38-126); Aspartate Aminotransferase 38 IU/L (17-59); BUN Creatinine Ratio 19.3 (6-22); Bilirubin Total 0.8 mg/dL (0.2-1.3); Blood Urea Nitrogen 29 mg/dL (9-20); Calcium 8.7 mg/dL (8.4-10.2); Carbon Dioxide 27 mmol/L (22-32); Chloride 106 mmol/L (98-107); Cholesterol 160 mg/dL (140-199); Estimated Glomerular Filt Rate 49 mL/min (>60); Globulin 3.4 g/dL (1.7-4.1); Glucose 101 mg/dL (80-110); HDL Cholesterol 80 mg/dL (40-60); HEMOLYSIS < 15 (0-50); LDL Cholesterol Calculated 67 mg/dL (<100); Potassium 4.7 mmol/L (3.4-5.1); Sodium 142 mmol/L (137-145); Total Protein 7.3 g/dL (6.3-8.2); Triglycerides 65 mg/dL (35-150); Uric Acid 2.8 mg/dL (3.5-8.5)
== END ==
PROVIDERS: PCP Internal Medicine; Referring Provider Internal Medicine; Visit Provider Internal Medicine
DX: E78.5 Hyperlipidemia, unspecified (principal); I10 Essential (primary) hypertension; I48.91 Unspecified atrial fibrillation; M10.9 Gout, unspecified; N18.31 Chronic kidney disease, stage 3a; Z79.01 Long term (current) use of anticoagulants
CPT/HCPCS: 36415; 80053; 80061; 84550; 85025

== ENCOUNTER → 2022-07-06 13:57 | Outpatient (CLI) | payer MEDICARE, SELFPAY ==
[2022-07-06 15:07] LABS: INR 2.7 (0.9-1.3); Prothrombin Time 30.7 SECONDS (10.1-12.7)
== END ==
PROVIDERS: PCP Internal Medicine; Referring Provider Internal Medicine; Visit Provider Internal Medicine
DX: Z79.01 Long term (current) use of anticoagulants (principal)
CPT/HCPCS: 36415; 85610

== ENCOUNTER → 2022-07-27 14:07 | Outpatient (CLI) | payer MEDICARE, SELFPAY ==
[2022-07-27 14:56] LABS: INR 2.3 (0.9-1.3); Prothrombin Time 26.9 SECONDS (10.1-12.7)
== END ==
PROVIDERS: PCP Internal Medicine; Referring Provider Internal Medicine; Visit Provider Internal Medicine
DX: Z79.01 Long term (current) use of anticoagulants (principal)
CPT/HCPCS: 36415; 85610

== ENCOUNTER → 2022-08-21 14:16 | Outpatient (CLI) | payer MEDICARE, SELFPAY ==
[2022-08-21 16:06] LABS: INR 2.6 (0.9-1.3); Prothrombin Time 29.8 SECONDS (10.1-12.7)
== END ==
PROVIDERS: PCP Internal Medicine; Referring Provider Internal Medicine; Visit Provider Internal Medicine
DX: Z79.01 Long term (current) use of anticoagulants (principal)
CPT/HCPCS: 36415; 85610

== ENCOUNTER → 2022-09-23 13:34 | Outpatient (CLI) | payer MEDICARE, SELFPAY ==
[2022-09-23 14:37] LABS: INR 3.3 (0.9-1.3)
== END ==
PROVIDERS: PCP Internal Medicine; Referring Provider Internal Medicine; Visit Provider Internal Medicine
DX: I48.0 Paroxysmal atrial fibrillation (principal); Z79.01 Long term (current) use of anticoagulants
CPT/HCPCS: 36415; 85610

== ENCOUNTER → 2022-10-07 14:26 | Outpatient (CLI) | payer MEDICARE, SELFPAY ==
[2022-10-07 15:16] LABS: INR 2.6 (0.9-1.3); Prothrombin Time 29.7 SECONDS (10.1-12.7)
== END ==
PROVIDERS: PCP Internal Medicine; Referring Provider Internal Medicine; Visit Provider Internal Medicine
DX: I48.0 Paroxysmal atrial fibrillation (principal); Z79.01 Long term (current) use of anticoagulants
CPT/HCPCS: 36415; 85610

== ENCOUNTER → 2022-10-20 14:08 | Outpatient (CLI) | payer MEDICARE, SELFPAY ==
[2022-10-20 15:00] LABS: INR 2.6 (0.9-1.3); Prothrombin Time 30.3 SECONDS (10.1-12.7)
== END ==
PROVIDERS: PCP Internal Medicine; Referring Provider Internal Medicine; Visit Provider Internal Medicine
DX: I48.0 Paroxysmal atrial fibrillation (principal); Z79.01 Long term (current) use of anticoagulants
CPT/HCPCS: 36415; 85610

== ENCOUNTER → 2022-11-19 13:49 | Outpatient (CLI) | payer MEDICARE, SELFPAY ==
[2022-11-19 14:52] LABS: INR 3.8 (0.9-1.3); Prothrombin Time 44.3 SECONDS (10.1-12.7)
== END ==
PROVIDERS: PCP Internal Medicine; Referring Provider Internal Medicine; Visit Provider Internal Medicine
DX: Z79.01 Long term (current) use of anticoagulants (principal); I48.0 Paroxysmal atrial fibrillation
CPT/HCPCS: 36415; 85610

== ENCOUNTER → 2022-11-26 15:03 | Outpatient (CLI) | payer MEDICARE, SELFPAY | PROVIDERS: PCP Internal Medicine; Referring Provider Internal Medicine; Visit Provider Internal Medicine | DX: I48.0 Paroxysmal atrial fibrillation (principal); Z79.01 Long term (current) use of anticoagulants | CPT/HCPCS: 36415; 85610 ==

== ENCOUNTER → 2022-12-24 15:13 | Outpatient (CLI) | payer MEDICARE, SELFPAY ==
[2022-12-24 16:50] LABS: INR 2.9 (0.9-1.3); Prothrombin Time 33.6 SECONDS (10.1-12.7)
== END ==
PROVIDERS: PCP Internal Medicine; Referring Provider Internal Medicine; Visit Provider Internal Medicine
DX: I48.0 Paroxysmal atrial fibrillation (principal); Z79.01 Long term (current) use of anticoagulants
CPT/HCPCS: 36415; 85610

== ENCOUNTER → 2023-04-02 07:59 | Outpatient (CLI) | payer MEDICARE, SELFPAY ==
[2023-04-02 08:24] LABS: Add Manual Diff / Slide Review NO; Basophils Absolute Auto 100 /uL (0-100); Basophils Percent Auto 0.9 % (0-2); Eosinophils Absolute Auto 400 /uL (0-450); Eosinophils Percent Auto 7.1 % (2-4); Hematocrit 47.9 % (41-53); Hemoglobin 16.3 g/dL (13.5-17.5); Lymphocytes Absolute Auto 1900 /uL (1100-4500); Lymphocytes Percent Auto 31.6 % (25-40); Mean Corpuscular HGB Conc 34.1 % (30-36); Mean Corpuscular Hemoglobin 33.4 PG (26-34); Monocytes Absolute Auto 500 /uL (0-900); Neutrophils Absolute Auto 3100 /uL (1500-7000); Neutrophils Percent Auto 51.4 % (50-75); Platelet Count 114 X10^3/uL (150-400); Red Blood Cell Count 4.89 X10^6/uL (4.5-5.9); Red Cell Distribution Width 14.1 % (11.6-14.8)
[2023-04-02 08:57] LABS: Alanine Aminotransferase 28 IU/L (<50); Albumin 3.8 g/dL (3.5-5.0); Albumin Globulin Ratio 1.2 (1.0-2.8); Alkaline Phosphatase 43 U/L (38-126); Aspartate Aminotransferase 28 IU/L (17-59); BUN Creatinine Ratio 24.1 (6-22); Bilirubin Total 0.8 mg/dL (0.2-1.3); Blood Urea Nitrogen 34 mg/dL (9-20); Calcium 8.7 mg/dL (8.4-10.2); Carbon Dioxide 28 mmol/L (22-32); Chloride 108 mmol/L (98-107); Cholesterol 176 mg/dL (140-199); Estimated Glomerular Filt Rate 52 mL/min (>60); Globulin 3.2 g/dL (1.7-4.1); Glucose 109 mg/dL (80-110); HDL Cholesterol 70 mg/dL (40-60); HEMOLYSIS < 15 (0-50); LDL Cholesterol Calculated 91 mg/dL (<100); Potassium 4.5 mmol/L (3.4-5.1); Sodium 141 mmol/L (137-145); Triglycerides 75 mg/dL (35-150); Uric Acid 2.9 mg/dL (3.5-8.5)
== END ==
PROVIDERS: PCP Internal Medicine; Referring Provider Internal Medicine; Visit Provider Internal Medicine
DX: I10 Essential (primary) hypertension (principal); D69.6 Thrombocytopenia, unspecified; E78.2 Mixed hyperlipidemia; M1A.9XX0 Chronic gout, unspecified, without tophus (tophi); N18.31 Chronic kidney disease, stage 3a; Z79.01 Long term (current) use of anticoagulants
CPT/HCPCS: 36415; 80053; 80061; 84550; 85025

== ENCOUNTER 2023-05-10 15:03 | Emergency (ER) | payer MEDICARE, SELFPAY ==
[2023-05-10 15:14] VITALS: BP 184/83; PULSE 61; RESP 16; TEMP 36.3; O2SAT 93; BMI 32.8
[2023-05-10 16:03] LABS: Add Manual Diff / Slide Review NO; Basophils Absolute Auto 100 /uL (0-100); Basophils Percent Auto 0.7 % (0-2); Eosinophils Absolute Auto 100 /uL (0-450); Eosinophils Percent Auto 1.5 % (2-4); Hematocrit 50.2 % (41-53); Hemoglobin 16.9 g/dL (13.5-17.5); Lymphocytes Absolute Auto 2000 /uL (1100-4500); Lymphocytes Percent Auto 21.3 % (25-40); Mean Corpuscular HGB Conc 33.7 % (30-36); Mean Corpuscular Hemoglobin 33.3 PG (26-34); Mean Corpuscular Volume 98.6 fL (80-100); Monocytes Absolute Auto 1000 /uL (0-900); Monocytes Percent Auto 10.2 % (3-14); Neutrophils Absolute Auto 6300 /uL (1500-7000); Neutrophils Percent Auto 66.3 % (50-75); Platelet Count 118 X10^3/uL (150-400); Red Blood Cell Count 5.09 X10^6/uL (4.5-5.9); Red Cell Distribution Width 14.3 % (11.6-14.8); White Blood Cell Count 9.6 X10^3/uL (4.5-11.0)
[2023-05-10 16:16] LABS: Alanine Aminotransferase 31 IU/L (<50); Albumin 4.3 g/dL (3.5-5.0); Albumin Globulin Ratio 1.2 (1.0-2.8); Alkaline Phosphatase 57 U/L (38-126); Aspartate Aminotransferase 32 IU/L (17-59); Bilirubin Total 1.1 mg/dL (0.2-1.3); Blood Urea Nitrogen 31 mg/dL (9-20); Calcium 9.2 mg/dL (8.4-10.2); Carbon Dioxide 29 mmol/L (22-32); Chloride 104 mmol/L (98-107); Estimated Glomerular Filt Rate 47 mL/min (>60); Globulin 3.7 g/dL (1.7-4.1); Glucose 107 mg/dL (80-110); HEMOLYSIS 25 (0-50); Potassium 4.8 mmol/L (3.4-5.1); Sodium 140 mmol/L (137-145)
[2023-05-10 18:45] VITALS: BP 196/85; PULSE 59; RESP 18; O2SAT 96
--- NOTE | 2023-05-10 19:01 | ED_ITS ---
HPI - GI Bleed General Chief complaint: GI Bleed Stated complaint: V/D, blood in stool x2 days Time Seen by Provider: 05/10/23 18:13 Source: patient Mode of arrival: Ambulatory History of Present Illness HPI Narrative: Patient is a 72-year-old male. He is on Coumadin. Is here for evaluation of several episodes of bright red blood per rectum over the past 12 hours. He states yesterday he would a fairly sudden onset of sharp abdominal cramping. Also had some nausea. He actually did not have a bowel movement yesterday but he did pass some bright red blood. This happened once again today. He is not having any other associated symptoms. He did have a colonoscopy about 5 years ago which she reports was unremarkable. Related Data Home Medications Medication Instructions Recorded Confirmed rosuvastatin 40 mg tablet 40 mg PO DAILY 03/14/19 04/08/23 epinephrine 0.3 mg/0.3 mL 0.3 mg IM Q5-15M PRN 10/08/20 04/08/23 injection, auto-injector (EpiPen 2-Keagan) Fish Oil 1 cap PO DAILY 02/19/22 04/08/23 acetaminophen 650 mg 1,300 mg PO DAILY PRN 02/19/22 04/08/23 tablet,extended release (Tylenol 8 Hour) amlodipine 5 mg tablet 5 mg PO DAILY 02/19/22 04/08/23 fluticasone propionate 50 2 spray intranasal DAILY PRN 02/19/22 04/08/23 mcg/actuation nasal allergy symptoms spray,suspension (Flonase Allergy Relief) losartan 50 mg tablet 50 mg PO DAILY 02/19/22 04/08/23 metoprolol succinate 200 mg 200 mg PO DAILY 02/19/22 04/08/23 tablet,extended release 24 hr multivitamin 1 tab PO DAILY 02/19/22 04/08/23 Previous Rx's Medication Instructions Recorded omeprazole 20 mg capsule,delayed 20 mg PO DAILY #90 caps 10/08/22 release doxazosin 4 mg tablet 4 mg PO DAILY #90 tabs 11/06/22 allopurinol 300 mg tablet 300 mg PO DAILY #90 tabs 03/02/23 warfarin 2 mg tablet 2 mg PO DAILY #90 tabs 04/30/23 Allergies Allergy/AdvReac Type Severity Reaction Status Date / Time No Known Drug Allergies Allergy Verified 05/10/23 15:14 Review of Systems Constitutional Constitutional: Reports system reviewed and no additional complaints, except as documented Gastrointestinal Gastrointestinal: Reports system reviewed and no additional complaints, except as documented Genitourinary Genitourinary: Reports system reviewed and no additional complaints, except as documented Hematologic/Lymphatic On Anticoagulants: Yes Patient History Medical History Abdominal aortic aneurysm Atrial fibrillation Barretts esophagus Chronic renal failure, stage 3a Chronic systolic (congestive) heart failure Current use of termite control representative anticoagulation GERD (gastroesophageal reflux disease) Gout HTN (hypertension) Hyperlipidemia Peripheral vascular disease Thrombocytopenia Surgical History Hx of appendectomy Family History Mother Hypertension Obesity Depression Anxiety Dementia Father Stroke Cancer Alcohol abuse Grandfather Heart disease Loud snoring Social History marital status: household members: spouse occupational status: previously employed Smoking Status: Never smoker alcohol intake: current substance use type: does not use Smoking Status: Never smoker alcohol intake frequency: 0-2 drinks per day Substance Use Type: does not use Exam Initial Vital Signs Initial Vital Signs: Vital Signs Temperature 97.3 F L 05/10/23 15:14 Pulse Rate 61 05/10/23 15:14 Respiratory Rate 16 05/10/23 15:14 Blood Pressure 184/83 H 05/10/23 15:14 Pulse Oximetry 93 05/10/23 15:14 Oxygen Delivery Method Room Air 05/10/23 15:14 Const General: cooperative, comfortable and No ill appearing [facility] Head: normal to inspection and normocephalic Resp Effort & Inspection: normal respiratory effort Cardio Rate: regular rate GI Inspection: normal to inspection Rectal Exam: heme positive stool and hemorrhoids (Internal hemorrhoid) Skin General: no rashes or lesions noted Neuro General: patient alert, patient awake and moves all extremities Speech: speech normal Extrem General: normal to inspection and capillary refill normal Course Orders Ordered: ED Orders 05/10/23 19:15 Prothrombin Time INR Stat Vital Signs Vital signs: Vital Signs - 8 hr 05/10/23 18:45 Pulse Rate 59 L Respiratory Rate 18 Blood Pressure 196/85 H Pulse Oximetry 96 Oxygen Delivery Method Room Air MDM - GI Bleed Lab Data Attestation: I reviewed the patient's lab results. 05/10/23 15:46 05/10/23 15:46 Labs: Lab Results 05/10/23 05/10/23 05/10/23 Range/Units 15:46 15:46 19:15 WBC 9.6 (4.5-11.0) X10^3/uL RBC 5.09 (4.5-5.9) X10^6/uL Hgb 16.9 (13.5-17.5) g/dL Hct 50.2 (41-53) % MCV 98.6 (80-100) fL MCH 33.3 (26-34) PG MCHC 33.7 (30-36) % RDW 14.3 (11.6-14.8) % Plt Count 118 L (150-400) X10^3/uL Neut % (Auto) 66.3 (50-75) % Lymph % (Auto) 21.3 L (25-40) % [place] % (Auto) 10.2 (3-14) % Eos % (Auto) 1.5 L (2-4) % Baso % (Auto) 0.7 (0-2) % Neut # (Auto) 6300 (7565-9730) /uL Lymph # (Auto) 2000 (0225-3880) /uL [place] # (Auto) 1000 H (0-900) /uL Eos # (Auto) 100 (0-450) /uL Baso # (Auto) 100 (0-100) /uL PT 31.9 H (10.1-12.7) SECONDS INR 2.8 H (0.9-1.3) Sodium 140 (137-145) mmol/L Potassium 4.8 (3.4-5.1) mmol/L Chloride 104 (98-107) mmol/L Carbon Dioxide 29 (22-32) mmol/L BUN 31 H (9-20) mg/dL Creatinine 1.55 H (0.66-1.25) mg/dL Estimated GFR 47 L (>60) mL/min BUN/Creatinine Ratio 20.0 (6-22) Glucose 107 (80-110) mg/dL Calcium 9.2 (8.4-10.2) mg/dL Total Bilirubin 1.1 (0.2-1.3) mg/dL AST 32 (17-59) IU/L ALT 31 (<50) IU/L Alkaline Phosphatase 57 (38-126) U/L Total Protein 8.0 (6.3-8.2) g/dL Albumin 4.3 (3.5-5.0) g/dL Globulin 3.7 (1.7-4.1) g/dL Albumin/Globulin Ratio 1.2 (1.0-2.8) MDM Narrative Medical decision making narrative: Patient did have an internal hemorrhoid felt on exam. His blood counts and INR are unremarkable. Patient is not anemic. Has had a colonoscopy 5 years ago. Advised patient that he should continue to take his Coumadin. No indication for radiologic studies today. He was given return precautions. He expressed understanding and agreement with plan. Discharge Plan Departure Patient Disposition: Home Clinical Impression: Bright red rectal bleeding, Internal hemorrhoid Instructions: DI for Rectal Bleeding Activity Restrictions/Additional Instructions: I do recommend that you continue to take all of your medications as directed to include your warfarin this evening. Contact your primary doctor for a follow- up. Return to the emergency department for new symptoms. Prescriptions: No Action omeprazole 20 mg capsule,delayed release(DR/EC) 20 mg PO DAILY Qty: 90 3RF doxazosin 4 mg tablet 4 mg PO DAILY Qty: 90 3RF allopurinol 300 mg tablet 300 mg PO DAILY Qty: 90 3RF warfarin 2 mg tablet 2 mg PO DAILY Qty: 90 0RF metoprolol succinate 200 mg tablet extended release 24 hr 200 mg PO DAILY losartan 50 mg tablet 50 mg PO DAILY amlodipine 5 mg tablet 5 mg PO DAILY multivitamin Tablet 1 tab PO DAILY acetaminophen [Tylenol 8 Hour] 650 mg tablet extended release 1,300 mg PO DAILY PRN fluticasone propionate [Flonase Allergy Relief] 50 mcg/actuation spray,suspension 2 spray intranasal DAILY PRN (Reason: allergy symptoms) Rx Instructions: administer into each nostril Fish Oil 1,400 mg 1 cap PO DAILY rosuvastatin 40 mg tablet 40 mg PO DAILY epinephrine [EpiPen 2-Keagan] 0.3 mg/0.3 mL auto-injector 0.3 mg IM Q5-15M PRN Rx Instructions: do not exceed 3 doses per episode Referrals: Paul Nobles MD [Primary Care Provider] - Stand Alone Forms: Patient Portal/API
[2023-05-10 19:32] LABS: INR 2.8 (0.9-1.3); Prothrombin Time 31.9 SECONDS (10.1-12.7)
== END 2023-05-10 20:08 | disposition home or self-care (01) ==
PROVIDERS: Student in an Organized Health Care Education/Training Program; Emergency Provider Emergency Medicine; PCP Internal Medicine
DX: K92.2 Gastrointestinal hemorrhage, unspecified (principal); K64.8 Other hemorrhoids
CPT/HCPCS: 36415; 80053; 85025; 85610; 99281; 99283

== ENCOUNTER 2023-05-27 11:37 | Emergency (ER) | payer MEDICARE, SELFPAY ==
[2023-05-27 11:44] VITALS: BP 172/89; PULSE 62; RESP 16; TEMP 36.6; O2SAT 92; BMI 32.8
--- NOTE | 2023-05-27 11:50 | DI.RAD.S_ITS ---
PROCEDURE: XR SHOULDER RT MIN 2V INDICATIONS: woke up with pain TECHNIQUE: 3 views of the shoulder were acquired. COMPARISON: None. FINDINGS: Bones: No fractures or dislocations. Moderate acromioclavicular joint and glenohumeral joint osteoarthritic changes are seen. No suspicious bony lesions. Visualized ribs appear intact. Soft tissues: Small calcifications are noted adjacent to greater tuberosity of humeral head. IMPRESSION: 1. No shoulder fracture or dislocation. Moderate right shoulder joint osteoarthritis. 2. Suggestion of calcific tendinitis involving rotator cuff tendons near humeral head. Dictated by: Shawn Isidro M.D. on 05/27/2023 at 12:16 Approved by: Shawn Isidro M.D. on 05/27/2023 at 12:16
--- NOTE | 2023-05-27 12:34 | ED_ITS ---
HPI - Extremity Problem General Chief complaint: Extremity Problem,Nontraumatic Stated complaint: RT shoulder pain reduced motion Time Seen by Provider: 05/27/23 12:06 Source: patient Mode of arrival: Ambulatory History of Present Illness HPI Narrative: Patient 72-year-old male history of atrial fibrillation on warfarin, CKD,presenting today right shoulder pain. He reports that started hurting suddenly last night. He is decreased range of motion. He denies any excessive use. No numbness tingling or weakness. He took Tylenol last night. Related Data Home Medications Medication Instructions Recorded Confirmed rosuvastatin 40 mg tablet 40 mg PO QPM 03/14/19 05/19/23 epinephrine 0.3 mg/0.3 mL 0.3 mg IM Q5-15M PRN Allergic 10/08/20 05/19/23 injection, auto-injector (EpiPen Reaction 2-Keagan) acetaminophen 650 mg 1,300 mg PO DAILY PRN Pain 02/19/22 05/19/23 tablet,extended release (Tylenol 8 Hour) amlodipine 5 mg tablet 5 mg PO DAILY 02/19/22 05/19/23 fluticasone propionate 50 2 spray intranasal DAILY PRN 02/19/22 05/19/23 mcg/actuation nasal allergy symptoms spray,suspension (Flonase Allergy Relief) losartan 50 mg tablet 50 mg PO QPM 02/19/22 05/19/23 metoprolol succinate 200 mg 200 mg PO DAILY 02/19/22 05/19/23 tablet,extended release 24 hr multivitamin 1 tab PO DAILY 02/19/22 05/19/23 doxazosin 4 mg tablet 4 mg PO QPM 05/19/23 05/19/23 omega 7-kgv-aib-fish oil 1,000 mg 1 cap PO DAILY 05/19/23 05/19/23 (120 mg-180 mg) capsule (Fish Oil) omeprazole 20 mg capsule,delayed 20 mg PO QNOON 05/19/23 05/19/23 release warfarin 2 mg tablet 2 mg PO QPM 05/19/23 05/19/23 Previous Rx's Medication Instructions Recorded allopurinol 300 mg tablet 300 mg PO DAILY #90 tabs 03/02/23 hydrocodone 5 mg-acetaminophen 325 1 tab PO Q6H PRN pain #10 tabs 05/27/23 mg tablet prednisone 20 mg tablet 20 mg PO DAILY #5 tabs 05/27/23 Allergies Allergy/AdvReac Type Severity Reaction Status Date / Time No Known Drug Allergies Allergy Verified 05/27/23 11:49 Review of Systems Review of Systems ROS Unobtainable: All systems reviewed & are unremarkable except as noted in HPI and below Patient History Medical History (Updated 05/27/23 @ 12:51 by Lynsey Vaca DO) Abdominal aortic aneurysm Atrial fibrillation Barretts esophagus Chronic renal failure, stage 3a Chronic systolic (congestive) heart failure Current use of long-term anticoagulation GERD (gastroesophageal reflux disease) Gout Hearing impaired History of cardioversion (10/2020) HTN (hypertension) Hyperlipidemia Peripheral vascular disease Skin cancer Sleep apnea Thrombocytopenia Surgical History (Updated 05/19/23 @ 14:18 by Vivienne Patino RN) Cataract extraction status, right eye Hx of appendectomy Hx of colonoscopy Hx of oral surgery Hx of toe surgery Family History Mother Hypertension Obesity Depression Anxiety Dementia Father Stroke Cancer Alcohol abuse Grandfather Heart disease Loud snoring Social History marital status: household members: spouse occupational status: previously employed Smoking Status: Never smoker alcohol intake: current substance use type: does not use Smoking Status: Never smoker alcohol intake frequency: 0-2 drinks per day Substance Use Type: does not use Exam Initial Vital Signs Initial Vital Signs: Vital Signs Temperature 97.8 F 05/27/23 11:44 Pulse Rate 62 05/27/23 11:44 Respiratory Rate 16 05/27/23 11:44 Blood Pressure 172/89 H 05/27/23 11:44 Pulse Oximetry 92 05/27/23 11:44 Oxygen Delivery Method Room Air 05/27/23 11:44 GENERAL: Alert pleasant 72-year-old male CARDIOVASCULAR: peripheral pulses in tact, cap refill <2 sec RESPIRATORY: No respiratory distress, speaks in full sentences without difficulty EXTREMITIES: Normal range of motion, no clubbing or edema. Neurovascularly intact Right shoulder decreased range of motion tender over biceps tendon distal radial pulse intact neurovascularly intact NEUROLOGICAL: Cranial nerves II through XII grossly intact. Normal gait and speech. SKIN: Warm, dry, no petechiae, no rashes or lesions. Course Orders Ordered: ED Orders 05/27/23 11:50 XR shoulder RT min 2V Stat Vital Signs Vital signs: Vital Signs - 8 hr 05/27/23 11:44 Temperature 97.8 F Pulse Rate 62 Respiratory Rate 16 Blood Pressure 172/89 H Pulse Oximetry 92 Oxygen Delivery Method Room Air MDM - Extremity (Nontraumatic) Imaging Data Extremity x-ray #1: Radiologist's Impression: PROCEDURE:? XR SHOULDER RT MIN 2V ? INDICATIONS:? woke up with pain ? TECHNIQUE:? 3 views of the shoulder were acquired.? ? COMPARISON:? None. ? FINDINGS:? ? Bones:? No fractures or dislocations.? Moderate acromioclavicular joint and glenohumeral joint osteoarthritic changes are seen.? No suspicious bony lesions.? Visualized ribs appear intact.? ? Soft tissues:? Small calcifications are noted adjacent to greater tuberosity of humeral head. ? IMPRESSION:? 1. No shoulder fracture or dislocation.? Moderate right shoulder joint osteoarthritis. 2. Suggestion of calcific tendinitis involving rotator cuff tendons near humeral head. ? ? Dictated by: Shawn Isidro M.D. on 05/27/2023 at 12:16 ?? [facility] Narrative Medical decision making narrative: At this time x-ray shows arthritis with calcific tendinitis. This clinically correlates he has significant pain decreased range of motion tender over biceps. No erythema no fever sign of septic joint. Definitely tender to palpation and musculoskeletal. Secondary to kidney disease and Coumadin NSAIDs not recommended. Will start him on a short course of prednisone to see if it decreases some of the inflammation. Also given [place] to help with severe pain and sleep. Discharge Plan Departure Patient Disposition: Home Clinical Impression: Tendinitis, Arthritis Instructions: DI for Calcific Tendonitis of the Shoulder Activity Restrictions/Additional Instructions: *You have been diagnosed with tendinitis and arthritis *What to do: At this time increase activity as tolerated no strenuous activity. *Continue to take medications as directed Prednisone 40 mg once a day for 5 days-->PLEASE HAVE INR CHECKED WHILE TAKING OR AFTER THIS CAN CAUSE INR TO INCREASE [place] 1 tablet every 6 hours if needed for severe pain *Follow up with your primary care provider in 2-3 days or call [phone] *Return to ER if you should have increasing pain redness numbness tingling or any new, worsening or concerning symptoms CONTROLLED SUBSTANCE DISCHARGE (Narcotoic/benzodiazepine/Flexeril/Phenergan) 1. You have been prescribed narcotic medications, it does have acetaminophen/Tylenol/paracetamol in it, DO NOT TAKE MORE THAN 4,00mg in 24 hours of Tylenol. TRAMADOL DOES NOT CONTAIN TYLENOL 2. Please understand that we cannot provide further refills of narcotics, benzodiazepines or controlled substances through the ED and her pain management will need to be through your provider. 3. While on these medications you cannot drive or operate heavy machinery. 4. You cannot sign legal documents or perform any duties such as this. 5. As long as you're taking opiate pain medications he should also be taking a stool softener such as Colace, Dulcolax, MiraLAX or prune juice, to help avoid constipation. Prescriptions: New hydrocodone-acetaminophen 5-325 mg tablet 1 tab PO Q6H PRN (Reason: pain) Qty: 10 0RF prednisone 20 mg tablet 20 mg PO DAILY Qty: 5 0RF No Action allopurinol 300 mg tablet 300 mg PO DAILY Qty: 90 3RF metoprolol succinate 200 mg tablet extended release 24 hr 200 mg PO DAILY losartan 50 mg tablet 50 mg PO QPM amlodipine 5 mg tablet 5 mg PO DAILY multivitamin Tablet 1 tab PO DAILY acetaminophen [Tylenol 8 Hour] 650 mg tablet extended release 1,300 mg PO DAILY PRN (Reason: Pain) fluticasone propionate [Flonase Allergy Relief] 50 mcg/actuation spray,susp ension 2 spray intranasal DAILY PRN (Reason: allergy symptoms) Rx Instructions: administer into each nostril rosuvastatin 40 mg tablet 40 mg PO QPM warfarin 2 mg tablet 2 mg PO QPM omeprazole 20 mg capsule,delayed release(DR/EC) 20 mg PO QNOON doxazosin 4 mg tablet 4 mg PO QPM omega 8-une-fsr-fish oil [Fish Oil] 1,000 mg (120 mg-180 mg) Capsule 1 cap PO DAILY epinephrine [EpiPen 2-Keagan] 0.3 mg/0.3 mL auto-injector 0.3 mg IM Q5-15M PRN (Reason: Allergic Reaction) Rx Instructions: do not exceed 3 doses per episode Referrals: Paul Nobles MD [Primary Care Provider] - Stand Alone Forms: Patient Portal/API
== END 2023-05-27 12:57 | disposition home or self-care (01) ==
PROVIDERS: Emergency Provider Emergency Medicine; PCP Internal Medicine
DX: M77.8 Other enthesopathies, not elsewhere classified (principal); M19.011 Primary osteoarthritis, right shoulder
CPT/HCPCS: 73030; 99283

== ENCOUNTER → 2023-05-28 07:39 | Outpatient (CLI) | payer MEDICARE, SELFPAY ==
[2023-05-28 08:07] LABS: Prothrombin Time 35.4 SECONDS (10.1-12.7)
[2023-05-28 08:10] LABS: PTT Partial Thromboplastin Tim 46 SECONDS (26-36)
== END ==
PROVIDERS: PCP Internal Medicine; Referring Provider Podiatrist; Visit Provider Podiatrist
DX: Z01.818 Encounter for other preprocedural examination (principal); Z51.81 Encounter for therapeutic drug level monitoring
CPT/HCPCS: 36415; 85610; 85730; 93005; 93010

== ENCOUNTER 2023-06-11 09:18 | Day surgery (SDC) | payer MEDICARE, SELFPAY ==
[2023-05-19 13:48] VITALS: BMI 32.8
[2023-06-11] VITALS (13 sets, daily range): BP systolic 121–135; BP diastolic 55–78; PULSE 63–94; RESP 10–14; TEMP 36.3–36.8; O2SAT 90–95; BMI 32.8
[2023-06-11 10:30] LABS: INR 1.4 (0.9-1.3); Prothrombin Time 16.3 SECONDS (10.1-12.7)
[2023-06-11] MEDS: LACTATED RINGERS 1,000 ML 42 ML IV ×2 (11:00→13:49)
--- NOTE | 2023-06-11 11:23 | P.OP_ITS ---
Operative Date/Time/Diagnoses Date of procedure: 06/11/23 Time of procedure: 11:23 Pre-op diagnosis: Left great toe joint arthritis Post-op diagnosis: same Procedure & Clinicians Procedure: Left first metatarsophalangeal arthrodesis Same procedure as scheduled: Yes Indications: 72-year-old male with painful great toe joint on the left foot. Conservative measures have failed to alleviate his pain and he wished to have surgical intervention at this time. We spoke of the risks, potential complications, expected outcomes, and alternatives. Ample time for questions to be answered. There is no contraindication to the procedure at this time. Surgeon: Anne Marie Dial Click Yes if Unassisted: Yes Anesthesia Type: General Operative Notes Closure Type: primary Specimen(s): none sent Prosthetic devices, grafts, tissues, transplants, or devices: [place] great toe fusion plate, 4.0 cannulated screw. 2.7 locking and non- locking screws (6) Estimated Blood Loss (mL): 30 Blood products transfused: none Tourniquet time (min): 79 Procedure in detail: The patient was brought to the operating room and placed on the operating table in the supine position. A tourniquet was placed about the patient's left thigh. After induction of general anesthesia the foot and ankle were prepped and draped in the usual aseptic manner. The tourniquet was inflated. Incision was made over the dorsal aspect of the left 1st metatarsophalangeal joint. The incision was deepened through subcutaneous tissues being careful to identify and retract all vital neurovascular structures. All bleeders were cauterized and ligated necessary. A significant amount of degenerative exostoses were noted to the dorsal medial and lateral 1st metatarsophalangeal joint. The capsule was opened and I also noted an enlarged medial eminence of the 1st metatarsal head. A saw was used to resect the medial eminence enlargement as well as some of the more prominent areas of spurring at the 1st metatarsophalangeal joint. The joint was flat with significant wear and remodeling. A saw was used to resect the cartilage surface from either side of the joint. Then remodeled to allow good alignment and coaptation. Subchondral drilling was performed to either side with the guidewire as well as some fish scaling using a small osteotome. The area was irrigated with copious amount of normal sterile saline. Temporary fixation across the joint was placed with a guidewire and this was checked under C-arm to be in appropriate alignment. A plate was chosen and any further reduction of prominences dorsally was performed with a rasp and rongeur. Using the aid of fluoroscopy, the guide wire was used as cannulation for the drill for a lag screw from the distal medial to proximal lateral first metatarsal phalangeal joint. Confirmed appropriate in all 3 planes, a partially threaded screw was placed and the guidewire removed. Good strength and reduction of the former joint. Plate was placed and with the aid of fluoroscopy a series of locking screws and a nonlocking screw were placed across the plate and steadied the joint well. This was checked on mini-C-arm. The area was irrigated with copious amounts normal sterile saline. The tourniquet was deflated and prompt hyperemic response was seen to the foot. No motion was noted at the 1st metatarsophalangeal joint. Subcutaneous closure was performed using Vicryl and nylon was used to close the skin. A sterile lightly compressive dressing was placed on the foot and he was placed in his postoperative boot. He was transferred to the PACU with vital signs stable and vascular status intact. Complications: none Post-operative Condition: stable Disposition: PACU Plan for aftercare: Following a period of postoperative monitoring, the patient will be discharged to home on written and oral postoperative instructions including keeping the dressing dry and intact, no weight to the surgical foot except for transfers, icing and elevating the foot when seated home. DVT prevention techniques have been reviewed. He will restart his warfarin tonight or tomorrow morning. His first weight-bearing x-rays will be taken approximately status post week 4.
--- NOTE | 2023-06-11 11:23 | PM.PREOP ---
Pre-operative Note Interval Note History & Physical reviewed/Exam performed by Physician: Yes Changes to H&P: No
[2023-06-11] MEDS: CEFAZOLIN 2 GM/100 ML PREMIX 100 ML IV (12:00)
--- NOTE | 2023-06-11 12:22 | SUR.OPER ---
Supine on padded OR bed, head on pillow, arms secured on padded arm boards at <90 degrees abduction, legs uncrossed, safety belt at lower torso, tape over blanket over right lower leg. Gel pad under right heel. Gel bump under left hip.
[2023-06-11] MEDS: BUPIVACAINE 0.5% (PF) 10 ML VIAL 20 ML INJ (12:36)
--- NOTE | 2023-06-11 15:50 | SUR.PHASEI ---
Pt evaluated for rapid afib when HR read up into the 140's. Stat EKG run and pt was found to be in SR with HR in the 60's. Leads to PACU monitor changed and HR read in 60's on PACU monitor. Pt was monitored longer in phase one to ensure HR stability.
--- NOTE | 2023-06-11 15:54 | SUR.PHASEII ---
Pt's has been brought to the bedside for discharge education. She has been advised to pursue sleep study for her as he has suspected EVONNE and does not use a CPAP. Medications and home care have been discussed and Pt and his , verbally acknowledge understanding.Pt has been escorted to his vehicle and assisted to sit inside by nursing staff.
== END 2023-06-11 15:54 | disposition home or self-care (01) ==
PROVIDERS: PCP Internal Medicine; Referring Provider Podiatrist; Visit Provider Podiatrist
PROC: (CPT 28750; principal; 2023-06-11 10:45)
DX: M19.072 Primary osteoarthritis, left ankle and foot (principal); M20.22 Hallux rigidus, left foot; I10 Essential (primary) hypertension; E78.5 Hyperlipidemia, unspecified; J45.909 Unspecified asthma, uncomplicated
CPT/HCPCS: 28750; 36415; 85610; 93005; C1713; J0690; J1100; J1170; J2405; J2704; J3010; J3490

== ENCOUNTER → 2023-07-21 09:52 | Outpatient (CLI) | payer MEDICARE, SELFPAY | PROVIDERS: PCP Internal Medicine; Referring Provider Internal Medicine; Visit Provider Internal Medicine | DX: R06.02 Shortness of breath (principal); J98.8 Other specified respiratory disorders | CPT/HCPCS: 94060; 94726; 94729 ==

== ENCOUNTER → 2023-07-27 08:54 | Outpatient (CLI) | payer MEDICARE, SELFPAY ==
[2023-07-27 11:11] LABS: Add Manual Diff / Slide Review NO; Basophils Absolute Auto 0 /uL (0-100); Basophils Percent Auto 0.6 % (0-2); Eosinophils Absolute Auto 300 /uL (0-450); Eosinophils Percent Auto 4.7 % (2-4); Hematocrit 52.2 % (41-53); Hemoglobin 17.9 g/dL (13.5-17.5); Lymphocytes Absolute Auto 2200 /uL (1100-4500); Lymphocytes Percent Auto 30.6 % (25-40); Mean Corpuscular HGB Conc 34.3 % (30-36); Mean Corpuscular Hemoglobin 33.1 PG (26-34); Mean Corpuscular Volume 96.6 fL (80-100); Monocytes Absolute Auto 600 /uL (0-900); Monocytes Percent Auto 9.2 % (3-14); Neutrophils Absolute Auto 3900 /uL (1500-7000); Neutrophils Percent Auto 54.9 % (50-75); Platelet Count 147 X10^3/uL (150-400); Red Blood Cell Count 5.41 X10^6/uL (4.5-5.9); Red Cell Distribution Width 13.9 % (11.6-14.8)
[2023-07-27 11:23] LABS: INR 2.3 (0.9-1.3); Prothrombin Time 26.8 SECONDS (10.1-12.7)
[2023-07-27 11:33] LABS: BUN Creatinine Ratio 22.8 (6-22); Blood Urea Nitrogen 37 mg/dL (9-20); Calcium 9.1 mg/dL (8.4-10.2); Carbon Dioxide 24 mmol/L (22-32); Chloride 105 mmol/L (98-107); Cholesterol 198 mg/dL (140-199); Estimated Glomerular Filt Rate 44 mL/min (>60); Glucose 105 mg/dL (80-110); HDL Cholesterol 69 mg/dL (40-60); HEMOLYSIS < 15 (0-50); LDL Cholesterol Calculated 104 mg/dL (<100); Potassium 4.8 mmol/L (3.4-5.1); Sodium 140 mmol/L (137-145); Triglycerides 125 mg/dL (35-150)
== END ==
PROVIDERS: PCP Internal Medicine; Referring Provider Internal Medicine Cardiovascular Disease; Visit Provider Internal Medicine Cardiovascular Disease
DX: I42.9 Cardiomyopathy, unspecified (principal); E78.5 Hyperlipidemia, unspecified; I48.0 Paroxysmal atrial fibrillation; Z79.01 Long term (current) use of anticoagulants
CPT/HCPCS: 36415; 80048; 80061; 85025; 85610

== ENCOUNTER → 2024-08-01 07:33 | Outpatient (CLI) | payer MEDICARE, SELFPAY ==
[2024-08-01 08:51] LABS: Hematocrit 48.1 % (41-53); Hemoglobin 16.4 g/dL (13.5-17.5); Mean Corpuscular HGB Conc 34.1 % (30-36); Mean Corpuscular Hemoglobin 34.4 PG (26-34); Platelet Count 139 X10^3/uL (150-400); Red Blood Cell Count 4.76 X10^6/uL (4.5-5.9); Red Cell Distribution Width 14.3 % (11.6-14.8); White Blood Cell Count 5.3 X10^3/uL (4.5-11.0)
[2024-08-01 09:15] LABS: BUN Creatinine Ratio 21.5 (6-22); Blood Urea Nitrogen 31 mg/dL (9-20); Calcium 9.3 mg/dL (8.4-10.2); Carbon Dioxide 25 mmol/L (22-32); Chloride 108 mmol/L (98-107); Cholesterol 187 mg/dL (140-199); Estimated Glomerular Filt Rate 51 mL/min (>60); Glucose 102 mg/dL (80-110); HDL Cholesterol 62 mg/dL (40-60); HEMOLYSIS < 15 (0-50); LDL Cholesterol Calculated 86 mg/dL (<100); Sodium 141 mmol/L (137-145); Triglycerides 193 mg/dL (35-150)
== END ==
PROVIDERS: PCP Internal Medicine; Referring Provider Internal Medicine Cardiovascular Disease; Visit Provider Internal Medicine Cardiovascular Disease
DX: I48.19 Other persistent atrial fibrillation (principal); E78.5 Hyperlipidemia, unspecified
CPT/HCPCS: 36415; 80048; 80061; 85027

== ENCOUNTER → 2024-08-15 07:31 | Outpatient (CLI) | payer MEDICARE, SELFPAY ==
--- NOTE | 2024-08-15 07:33 | DI.US.S_ITS ---
PROCEDURE: US RETRO PERITONEAL LIMITED INDICATIONS: AAA WO RUPTURE TECHNIQUE: Real time scanning was performed of the aorta and iliac arteries, with image documentation. COMPARISON: [facility] Ultrasound, US, US AAA SCREENING ([facility]), 08/27/2021, 11:21. , US, US RETRO PERITONEAL LIMITED, 03/30/2022, 11:20. FINDINGS: Aorta: The proximal aorta is not well identified. In the mid-distal portion, there is a fusiform 3.7 by 5.0 x 10.7 cm (AP x transverse x CC) abdominal aortic aneurysm. There is calcified plaque along the posterior portion of the aneurysm. Iliac arteries: Right common iliac artery measures 1.1 cm. Left common iliac artery measures 1.0 cm. The IMPRESSION: Limited visualization of the abdominal aorta due to body habitus. Mid-distal fusiform 5.0 cm abdominal aortic aneurysm. Based on prior reports, there is some fluctuation in size. A CT abdomen and pelvis angiogram would be recommended to fully characterize the size and extent of the of the abdominal aortic aneurysm. Dictated by: Alfred Islas M.D. on 08/15/2024 at 13:41 Approved by: Alfred Islas M.D. on 08/15/2024 at 13:54
== END ==
PROVIDERS: PCP Internal Medicine; Referring Provider Internal Medicine Cardiovascular Disease; Visit Provider Internal Medicine Cardiovascular Disease
DX: I71.40 Abdominal aortic aneurysm, without rupture, unspecified (principal)
CPT/HCPCS: 76775

== ENCOUNTER → 2024-09-01 07:33 | Outpatient (CLI) | payer MEDICARE, SELFPAY ==
[2024-09-01 08:26] LABS: Add Manual Diff / Slide Review NO; Basophils Absolute Auto 0 /uL (0-100); Basophils Percent Auto 0.5 % (0-2); Eosinophils Absolute Auto 300 /uL (0-450); Hematocrit 47.9 % (41-53); Hemoglobin 16.5 g/dL (13.5-17.5); Lymphocytes Absolute Auto 2400 /uL (1100-4500); Lymphocytes Percent Auto 37.6 % (25-40); Mean Corpuscular HGB Conc 34.5 % (30-36); Mean Corpuscular Hemoglobin 34.9 PG (26-34); Mean Corpuscular Volume 101.3 fL (80-100); Monocytes Absolute Auto 800 /uL (0-900); Neutrophils Absolute Auto 2900 /uL (1500-7000); Neutrophils Percent Auto 44.9 % (50-75); Platelet Count 145 X10^3/uL (150-400); Red Blood Cell Count 4.73 X10^6/uL (4.5-5.9); Red Cell Distribution Width 14.1 % (11.6-14.8); White Blood Cell Count 6.5 X10^3/uL (4.5-11.0)
[2024-09-01 08:44] LABS: Alanine Aminotransferase 46 IU/L (<50); Albumin 3.9 g/dL (3.5-5.0); Albumin Globulin Ratio 1.3 (1.0-2.8); Alkaline Phosphatase 50 U/L (38-126); Aspartate Aminotransferase 39 IU/L (17-59); BUN Creatinine Ratio 19.6 (6-22); Bilirubin Total 0.7 mg/dL (0.2-1.3); Blood Urea Nitrogen 29 mg/dL (9-20); Calcium 9.2 mg/dL (8.4-10.2); Carbon Dioxide 25 mmol/L (22-32); Chloride 108 mmol/L (98-107); Cholesterol 141 mg/dL (140-199); Estimated Glomerular Filt Rate 49 mL/min (>60); Glucose 105 mg/dL (80-110); HDL Cholesterol 59 mg/dL (40-60); HEMOLYSIS 21 (0-50); LDL Cholesterol Calculated 62 mg/dL (<100); Potassium 4.9 mmol/L (3.4-5.1); Sodium 142 mmol/L (137-145); Total Protein 6.9 g/dL (6.3-8.2); Triglycerides 98 mg/dL (35-150)
[2024-09-10 11:07] LABS: Percent Free Testosterone 3.25 % (1.50-4.20); Testosterone Free 9.02 ng/dL (5.00-21.00); Testosterone Total 277.4 ng/dL (264.0-916.0)
== END ==
PROVIDERS: PCP Internal Medicine; Referring Provider Internal Medicine; Visit Provider Internal Medicine
DX: I10 Essential (primary) hypertension (principal); E78.5 Hyperlipidemia, unspecified; I48.91 Unspecified atrial fibrillation; N18.31 Chronic kidney disease, stage 3a; Z79.01 Long term (current) use of anticoagulants; D64.9 Anemia, unspecified; N52.9 Male erectile dysfunction, unspecified
CPT/HCPCS: 36415; 80053; 80061; 84402; 84403; 85025

== ENCOUNTER → 2025-04-09 07:39 | Outpatient (CLI) | payer MEDICARE, SELFPAY ==
[2025-04-09 08:56] LABS: Add Manual Diff / Slide Review NO; Basophils Absolute Auto 0 /uL (0-100); Basophils Percent Auto 0.8 % (0-2); Eosinophils Absolute Auto 400 /uL (0-450); Eosinophils Percent Auto 6.8 % (2-4); Hematocrit 49.1 % (41-53); Hemoglobin 16.5 g/dL (13.5-17.5); Lymphocytes Absolute Auto 1900 /uL (1100-4500); Lymphocytes Percent Auto 34.6 % (25-40); Mean Corpuscular HGB Conc 33.7 % (30-36); Mean Corpuscular Hemoglobin 34.5 PG (26-34); Mean Corpuscular Volume 102.3 fL (80-100); Monocytes Absolute Auto 600 /uL (0-900); Monocytes Percent Auto 10.7 % (3-14); Neutrophils Absolute Auto 2600 /uL (1500-7000); Neutrophils Percent Auto 47.1 % (50-75); Platelet Count 128 X10^3/uL (150-400); Red Cell Distribution Width 14.3 % (11.6-14.8); White Blood Cell Count 5.4 X10^3/uL (4.5-11.0)
[2025-04-09 09:11] LABS: Alanine Aminotransferase 38 IU/L (<50); Albumin 3.9 g/dL (3.5-5.0); Albumin Globulin Ratio 1.3 (1.0-2.8); Alkaline Phosphatase 58 U/L (38-126); Aspartate Aminotransferase 36 IU/L (17-59); BUN Creatinine Ratio 20.3 (6-22); Blood Urea Nitrogen 30 mg/dL (9-20); Calcium 9.2 mg/dL (8.4-10.2); Carbon Dioxide 30 mmol/L (22-32); Chloride 108 mmol/L (98-107); Cholesterol 142 mg/dL (140-199); Estimated Glomerular Filt Rate 49 mL/min (>60); Globulin 2.9 g/dL (1.7-4.1); Glucose 91 mg/dL (70-99); HDL Cholesterol 60 mg/dL (40-60); HEMOLYSIS < 15 (0-50); LDL Cholesterol Calculated 66 mg/dL (<100); Potassium 4.9 mmol/L (3.4-5.1); Sodium 143 mmol/L (137-145); Total Protein 6.8 g/dL (6.3-8.2); Triglycerides 82 mg/dL (35-150)
== END ==
PROVIDERS: PCP Internal Medicine; Referring Provider Internal Medicine; Visit Provider Internal Medicine
DX: E78.5 Hyperlipidemia, unspecified (principal); N18.31 Chronic kidney disease, stage 3a; I48.91 Unspecified atrial fibrillation; I12.9 Hypertensive chronic kidney disease with stage 1 through stage 4 chronic kidney disease, or unspecified chronic kidney disease
CPT/HCPCS: 36415; 80053; 80061; 85025

== ENCOUNTER → 2025-09-14 08:59 | Outpatient (CLI) | payer MEDICARE, SELFPAY ==
[2025-09-14 10:00] LABS: Hematocrit 48.4 % (41-53); Hemoglobin 16.1 g/dL (13.5-17.5); Mean Corpuscular HGB Conc 33.3 % (30-36); Mean Corpuscular Hemoglobin 33.5 PG (26-34); Mean Corpuscular Volume 100.5 fL (80-100); Platelet Count 131 X10^3/uL (150-400)
[2025-09-14 10:35] LABS: Blood Urea Nitrogen 30 mg/dL (9-20); Calcium 8.9 mg/dL (8.4-10.2); Carbon Dioxide 27 mmol/L (22-32); Chloride 107 mmol/L (98-107); Cholesterol 132 mg/dL (140-199); Estimated Glomerular Filt Rate 48 mL/min (>60); Glucose 109 mg/dL (70-99); HDL Cholesterol 59 mg/dL (40-60); HEMOLYSIS < 15 (0-50); Potassium 4.7 mmol/L (3.4-5.1); Sodium 141 mmol/L (137-145); Triglycerides 71 mg/dL (35-150)
== END ==
PROVIDERS: PCP Internal Medicine; Referring Provider Internal Medicine Cardiovascular Disease; Visit Provider Internal Medicine Cardiovascular Disease
DX: E78.5 Hyperlipidemia, unspecified (principal); I48.19 Other persistent atrial fibrillation
CPT/HCPCS: 36415; 80048; 80061; 85027

== ENCOUNTER → 2025-10-08 07:33 | Outpatient (CLI) | payer MEDICARE, SELFPAY ==
[2025-10-08 08:22] LABS: Add Manual Diff / Slide Review NO; Hematocrit 49.1 % (41-53); Hemoglobin 16.7 g/dL (13.5-17.5); Lymphocytes Absolute Auto 2500 /uL (1100-4500); Mean Corpuscular HGB Conc 34.1 % (30-36); Mean Corpuscular Hemoglobin 34.2 PG (26-34); Mean Corpuscular Volume 100.5 fL (80-100); Platelet Count 134 X10^3/uL (150-400)
[2025-10-08 08:55] LABS: Alanine Aminotransferase 26 IU/L (<50); Albumin 4.2 g/dL (3.5-5.0); Albumin Globulin Ratio 1.2 (1.0-2.8); Alkaline Phosphatase 58 U/L (38-126); Blood Urea Nitrogen 45 mg/dL (9-20); Calcium 9.2 mg/dL (8.4-10.2); Carbon Dioxide 25 mmol/L (22-32); Chloride 107 mmol/L (98-107); Cholesterol 138 mg/dL (140-199); Estimated Glomerular Filt Rate 38 mL/min (>60); Globulin 3.5 g/dL (1.7-4.1); Glucose 113 mg/dL (70-99); HDL Cholesterol 59 mg/dL (40-60); HEMOLYSIS < 15 (0-50); Potassium 4.7 mmol/L (3.4-5.1); Sodium 143 mmol/L (137-145); Total Protein 7.7 g/dL (6.3-8.2); Triglycerides 76 mg/dL (35-150)
[2025-10-08 09:40] LABS: Vitamin B12 484 pg/mL (239-931)
== END ==
PROVIDERS: PCP Internal Medicine; Referring Provider Internal Medicine; Visit Provider Internal Medicine
DX: E78.5 Hyperlipidemia, unspecified (principal); I12.9 Hypertensive chronic kidney disease with stage 1 through stage 4 chronic kidney disease, or unspecified chronic kidney disease; N18.31 Chronic kidney disease, stage 3a
CPT/HCPCS: 36415; 80053; 80061; 82607; 85025

== ENCOUNTER → 2025-10-15 10:42 | Outpatient (CLI) | payer MEDICARE, SELFPAY ==
--- NOTE | 2025-10-15 10:44 | DI.US.S_ITS ---
PROCEDURE: US RETRO PERITONEAL LIMITED INDICATIONS: AAA TECHNIQUE: Real time scanning was performed of the aorta and iliac arteries, with image documentation. COMPARISON: [facility], , US RETRO PERITONEAL LIMITED, 08/15/2024, 7:44. FINDINGS: Aorta: Proximal aortic not well seen. Mid to distal-aorta measures 4.1 x 4.8 cm. Iliac arteries: Right common iliac artery measures 1.3 cm. Left common iliac artery measures 1.2 cm. IMPRESSION: Similar appearance of mid to distal abdominal aortic aneurysm measuring up to 4.8 cm in maximal diameter compared to 5.0 cm on prior exam. Six-month follow-up ultrasound recommended. Consider surgery/endovascular treatment. Dictated by: Issac Lozano [facility] Interpreted: Juan Daniel Wright MD on 10/15/2025 at 14:19 Transcribed by: LIZ on 10/15/2025 at 14:41 Approved by: Juan Daniel Wright M.D. on 10/15/2025 at 15:00
== END ==
PROVIDERS: PCP Internal Medicine; Referring Provider Internal Medicine; Visit Provider Internal Medicine Cardiovascular Disease
DX: I71.40 Abdominal aortic aneurysm, without rupture, unspecified (principal)
CPT/HCPCS: 76775